=== PATIENT | male | born 1940 | race Caucasian/White ===

== ENCOUNTER 2017-01-30 09:00 | Inpatient (IN) | payer OTHER ==
[2017-01-30] MEDS ORDERED: ASPIRIN PO STA (09:32)
[2017-01-30] MEDS ORDERED: SOLU-MEDROL IV ONE (09:32)
[2017-01-30] MEDS ORDERED: DUONEB (A & A) INH ONE ×2 (09:32→11:32)
--- NOTE | 2017-01-30 09:39 | PROVIDER DOCUMENTATION ---
HPI-Respiratory General - General Chief Complaint: Shortness of Breath Stated Complaint: SHORTNESS OF BREATH Time Seen by Provider: 01/30/17 09:25 Source: patient, family Allergies/Adverse Reactions: Patient Allergies Allergy/AdvReac Type Severity Reaction Status Date / Time meperidine HCl * Allergy Severe SHORTNESS Verified 10/24/16 22:38 [From Demerol] OF BREATH midazolam HCl * [From Versed] Allergy Severe SHORTNESS Verified 10/24/16 22:38 OF BREATH Penicillins Allergy Severe ANAPHYLAXIS Verified 10/24/16 22:38 tetracycline Allergy Severe ANAPHYLAXIS Verified 10/24/16 22:38 Sulfa (Sulfonamide AdvReac Severe ANAPHYLAXIS Verified 10/24/16 22:38 Antibiotics) Home Medications: Home Medication List Medication Instructions Recorded Confirmed Last Taken Type Albuterol Sulfate 0.63 mg NEB PRN PRN 10/24/16 01/30/17 01/29/17 07:00 History 0.63 MG Albuterol Sulfate [Proair Hfa] 1 puff INH PRN PRN 10/24/16 01/30/17 01/29/17 07: 00 History 1 PUFF Amiodarone [Cordarone] 200 mg PO BID 10/24/16 01/30/17 01/29/17 19:00 History 200 MG Aspirin [Aspirin EC] 81 mg PO DAILY 10/24/16 01/30/17 01/29/17 07:00 History 81 MG Carvedilol [Coreg] 3.125 mg PO BID 10/24/16 01/30/17 01/29/17 19:00 History 3.125 MG Diltiazem [Cardizem] 60 mg PO TID 10/24/16 01/30/17 01/29/17 07:00 History 60 MG Furosemide [Lasix] 40 mg PO DAILY 10/24/16 01/30/17 01/29/17 07:00 History 40 MG Gabapentin [Neurontin] 100 mg PO TID 10/24/16 01/30/17 01/29/17 19:00 History 100 MG Glipizide [Glipizide ER] 10 mg PO DAILY 10/24/16 01/30/17 01/29/17 07:00 History 10 MG Lisinopril 10 mg PO DAILY 10/24/16 01/30/17 01/29/17 07:00 History 10 MG Metformin [Glucophage] 1,000 mg PO BID 10/24/16 01/30/17 01/29/17 19:00 History 1000 MG Nitroglycerin [Nitroglycerin 0.4 mg SL PRN PRN 10/24/16 01/30/17 01/29/17 07:00 History Lingual [place]] 0.4 MG Pantoprazole [Protonix] 40 mg PO DAILY 10/24/16 01/30/17 01/29/17 07:00 History 40 MG Pravastatin Sodium 40 mg PO DAILY 10/24/16 01/30/17 01/29/17 19:00 History 40 MG Zolpidem Tartrate 5 mg PO DAILY 10/24/16 01/30/17 01/29/17 19:00 History 5 MG Sertraline HCl [Zoloft] 100 mg PO 01/30/17 01/29/17 07:00 History 100 MG - History of Present Illness-Resp Nature of Presenting Problem: Patient is a 76 y/o M that presents to the with 5 to 6 days of shortness of breath and productive cough that has gotten worse. Patient reports having chest pain 2 days ago that nitro relieved. patient was on a 7 day course of Levaquin by in which he completed 6 days ago. He denies fever/chills, vomiting. He does report some abdominal cramping with diarrhea. on arrival to the ER, patient o2 saturation was 84% 3lpm per [place] Quality of Pain: reports: dull, tightness Severity in ED: reports: moderate Onset/Duration: reports: gradual, 5 days ago, 6 days ago Timing: reports: still present, getting worse Context: reports: multiple patients with similar complaints, recent URI Cough Quality/Degree: reports: moderate, productive cough, sputum (yellow/brown) Current Respiratory Medication Therapy: Initiated see nurses note Modifying Factors: worse with: exertion, coughing Associated Symptoms: reports: chest pain/soreness, cough, shortness of breath, short of breath. denies: facial pain, fever/chills, headache, nasal congestion , nasal drainage, wheezing Similar Symptoms Previously?: Yes Recently seen or treated by another doctor?: Yes Review of Systems - Adult - REVIEW OF SYSTEMS - ADULT Constitutional: denies: chills, fever Eyes: reports: no symptoms reported Ears, Nose, Mouth & Throat: denies: ear discharge, ear pain, sinus problem, throat pain, throat swelling Cardiovascular: reports: chest pain. denies: palpitations, syncope Respiratory: reports: chronic cough, cough, dyspnea on exertion, excessive sputum production, shortness of breath Gastrointestinal: reports: abdominal pain, diarrhea, nausea. denies: rectal bleeding, vomiting Genitourinary: reports: no symptoms reported Musculoskeletal: reports: no symptoms reported Integumentary: reports: no symptoms reported Neurological: reports: no symptoms reported Psychiatric: reports: no symptoms reported Endocrine: reports: no symptoms reported Hematologic/Lymphatic: reports: no symptoms reported Allergic/Immunologic: reports: no symptoms reported All Other Systems: Reviewed and Negative Past History - Adult - PAST MEDICAL HISTORY-ADULT Review of Records: reports: Old Records Reviewed, Nursing Assessment Review, Medications Reviewed Cardiovascular: reports: CAD, CHF, HTN, hyperlipidemia, ID Respiratory: reports: COPD Gastrointestinal: reports: GERD Neurological: reports: CVA - PRIOR SURGERIES/PROCEDURES Surgical/Procedure History: reports: appendectomy, cholecystectomy, cardiac stent, hernia repair, other (cataract) - IMMUNIZATION STATUS Childhood Immunizations: See Nurse Assessment Flu Vaccine: See Nurse Assessment - FAMILY HISTORY Family History: reviewed, not pertinent - SOCIAL HISTORY Smoking: quit greater than 1 year, cigarettes Living Situation: family Physical Exam-General - PHYSICAL EXAM-ADULT Initial Vital Signs Reviewed: Yes - CONSTITUTIONAL General Appearance: alert, mild distress - EYES Eyes: PERRL/EOMI, pink conjunctivae - HEAD, EARS, NOSE, MOUTH & THROAT HENMT: normocephalic/atraumatic, moist mucous membranes, normal ENT inspection - NECK Neck: non-tender, full range of motion, normal inspection - RESPIRATORY Respiratory: no respiratory distress, no accessory muscle use, decreased breath sounds - CARDIOVASCULAR Cardiovascular: regular rate, rhythm, no gallop, no JVD - GASTROINTESTINAL (ABDOMEN) Abdominal Exam: normal bowel sounds, non tender, soft, no organomegaly, no pulsatile mass. negative: distended, guarding, rigid, rebound - MUSCULOSKELETAL Back Exam: no CVA tenderness, no vertebral tenderness Extremity: normal range of motion, normal inspection, no pedal edema, normal capillary refill, pelvis stable - SKIN Integumentary: normal color, warm/dry - NEUROLOGIC Neurologic: grossly normal, no motor/sensory deficits - PSYCHIATRIC Psych/Mental Status: normal mood/affect, normal thought content, normal thought process, oriented x 3 Progress - PLAN OF CARE/RESULTS Progress/Plan/Lab Results: plan of care-labs, meds, breathing tx, ekg, cxr Vital Signs Temp Pulse Resp BP Pulse Ox 01/30/17 09:50 88 16 85 L 01/30/17 09:23 98.0 F 01/30/17 09:19 89 22 120/56 84 L meperidine HCl * [From Demerol] Allergy (Severe, Verified 10/24/16 22:38) SHORTNESS OF BREATH reaction with versed during a prior surgery midazolam HCl * [From Versed] Allergy (Severe, Verified 10/24/16 22:38) SHORTNESS OF BREATH reaction with demerol during a prior surgery Penicillins Allergy (Severe, Verified 10/24/16 22:38) ANAPHYLAXIS tetracycline Allergy (Severe, Verified 10/24/16 22:38) ANAPHYLAXIS Sulfa (Sulfonamide Antibiotics) Adverse Reaction (Severe, Verified 10/24/16 22: 38) ANAPHYLAXIS Albuterol Sulfate 0.63 mg NEB PRN PRN 10/24/16 Albuterol Sulfate [Proair Hfa] 1 puff INH PRN PRN 10/24/16 Amiodarone [Cordarone] 200 mg PO BID 10/24/16 Aspirin [Aspirin EC] 81 mg PO DAILY 10/24/16 Carvedilol [Coreg] 3.125 mg PO BID 10/24/16 Diltiazem [Cardizem] 60 mg PO TID 10/24/16 Furosemide [Lasix] 40 mg PO DAILY 10/24/16 Gabapentin [Neurontin] 100 mg PO TID 10/24/16 Glipizide [Glipizide ER] 10 mg PO DAILY 10/24/16 Lisinopril 10 mg PO DAILY 10/24/16 Metformin [Glucophage] 1,000 mg PO BID 10/24/16 Nitroglycerin [Nitroglycerin Lingual [place]] 0.4 mg SL PRN PRN 10/24/16 Pantoprazole [Protonix] 40 mg PO DAILY 10/24/16 Pravastatin Sodium 40 mg PO DAILY 10/24/16 Zolpidem Tartrate 5 mg PO DAILY 10/24/16 Sertraline HCl [Zoloft] 100 mg PO 01/30/17 Laboratory 01/30/17 01/30/17 01/30/17 10:06 10:06 10:06 WBC RBC Hgb Hct MCV MCH MCHC RDW Std Deviation Plt Count MPV Immature Gran % (Auto) Neut % (Auto) Lymph % (Auto) [place] % (Auto) Eos % (Auto) Baso % (Auto) Immature Gran # (Auto) Neut # (Auto) Lymph # (Auto) [place] # (Auto) Eos # (Auto) Baso # (Auto) PT 11.4 INR 1.07 PTT (Actin FS) 32.5 D-Dimer Specimen Type Sample Site pH pCO2 pO2 HCO3 Base Excess Oxyhemoglobin ABG O2 Sat (Calculated) ABG O2 Saturation ABG Carboxyhemoglobin ABG Methemoglobin Claudy Test A-a O2 Difference Total Hemoglobin Lactate Liter Flow Blood Gas Modality FiO2 % Sodium Potassium Chloride Carbon Dioxide Anion Gap BUN Creatinine Estimated GFR/1.73 m2 BUN/Creatinine Ratio Glucose Calculated Osmolality Calcium Magnesium Total Bilirubin AST ALT Alkaline Phosphatase Creatine Kinase Troponin T 0.027 Biq-T-Jtstnfforcl Pept 3715 H Total Protein Albumin Globulin Albumin/Globulin Ratio Lipase 01/30/17 01/30/17 01/30/17 10:06 10:06 10:06 WBC 9.62 RBC 3.94 L Hgb 10.0 L Hct 31.7 L MCV 80.5 L MCH 25.4 L MCHC 31.5 L RDW Std Deviation 16.9 H Plt Count 316 MPV 9.3 Immature Gran % (Auto) 0.9 H Neut % (Auto) 79.3 H Lymph % (Auto) 10.9 L [place] % (Auto) 7.7 Eos % (Auto) 1.0 Baso % (Auto) 0.2 Immature Gran # (Auto) 0.09 H Neut # (Auto) 7.62 H Lymph # (Auto) 1.05 L [place] # (Auto) 0.74 H Eos # (Auto) 0.10 Baso # (Auto) 0.02 PT INR PTT (Actin FS) D-Dimer 4.33 H Specimen Type Sample Site pH pCO2 pO2 HCO3 Base Excess Oxyhemoglobin ABG O2 Sat (Calculated) ABG O2 Saturation ABG Carboxyhemoglobin ABG Methemoglobin Claudy Test A-a O2 Difference Total Hemoglobin Lactate Liter Flow Blood Gas Modality FiO2 % Sodium 141 Potassium 3.5 Chloride 101 Carbon Dioxide 27 Anion Gap 13 BUN 14 Creatinine 1.0 Estimated GFR/1.73 m2 > 60 BUN/Creatinine Ratio 14 Glucose 170 H Calculated Osmolality 286 Calcium 8.4 L Magnesium 1.6 Total Bilirubin 0.40 AST 15 ALT 12 Alkaline Phosphatase 100 Creatine Kinase 70 Troponin T Wbu-H-Jznnoatnejj Pept Total Protein 7.1 Albumin 3.0 L Globulin 4.1 Albumin/Globulin Ratio 0.7 Lipase 15 01/30/17 09:48 WBC RBC Hgb Hct MCV MCH MCHC RDW Std Deviation Plt Count MPV Immature Gran % (Auto) Neut % (Auto) Lymph % (Auto) [place] % (Auto) Eos % (Auto) Baso % (Auto) Immature Gran # (Auto) Neut # (Auto) Lymph # (Auto) [place] # (Auto) Eos # (Auto) Baso # (Auto) PT INR PTT (Actin FS) D-Dimer Specimen Type ARTERIAL Sample Site R RADIAL pH 7.49 H pCO2 37 pO2 49 L* HCO3 28.3 H Base Excess 4.6 H Oxyhemoglobin 85.4 L* ABG O2 Sat (Calculated) 12.7 L ABG O2 Saturation 89.5 L ABG Carboxyhemoglobin 3.20 H ABG Methemoglobin 1.4 Claudy Test YES A-a O2 Difference 133.0 Total Hemoglobin 10.6 L Lactate 1.40 Liter Flow 3.0 Blood Gas Modality CANNULA FiO2 % 32.0 Sodium Potassium Chloride Carbon Dioxide Anion Gap BUN Creatinine Estimated GFR/1.73 m2 BUN/Creatinine Ratio Glucose Calculated Osmolality Calcium Magnesium Total Bilirubin AST ALT Alkaline Phosphatase Creatine Kinase Troponin T Azt-F-Gnwahdokdmb Pept Total Protein Albumin Globulin Albumin/Globulin Ratio Lipase Orders Category Date Time Status Cardiac Monitoring DIRECTED Care 01/30/17 09:32 Active Saline Loc NOW Care 01/30/17 09:32 Active CHEST-PORTABLE [RAD] Stat Exams 01/30/17 09:22 Draft ABG [RESP] Routine Lab 01/30/17 09:48 Completed BLOOD CULTURE [BLDCUL] Stat Lab 01/30/17 10:06 Results CBC WITH ELECTRONIC DIFF [HEME] Stat Lab 01/30/17 10:06 Completed CK PROFILE [SP CHEM] Stat Lab 01/30/17 10:06 Completed COMPREHENSIVE METABOLIC PANEL [CHEM] Stat Lab 01/30/17 10:06 Completed D-DIMER [CHEM] Stat Lab 01/30/17 10:06 Completed LIPASE [CHEM] Stat Lab 01/30/17 10:06 Completed MAGNESIUM [CHEM] Stat Lab 01/30/17 10:06 Completed PRO B-NATRIURETIC PEPTIDE Stat Lab 01/30/17 10:06 Completed PROTIME WITH INR [COAG] Stat Lab 01/30/17 10:06 Completed PTT [COAG] Stat Lab 01/30/17 10:06 Completed TROPONIN T Stat Lab 01/30/17 10:06 Completed UA NIMS W/REFLEX CULT [URINALYSIS] Stat Lab 01/30/17 09:32 Uncollected Albuterol 2.5MG/Ipratrop 0.5MG [Duoneb (A & A)] Med 01/30/17 09:32 Discontinued 3 ml INH NOW ONE Aspirin Med 01/30/17 09:32 Discontinued 325 mg PO STAT STA Furosemide [Lasix] Med 01/30/17 10:58 Discontinued 80 mg IV NOW ONE Methylprednisolone Sod Succ [Solu-Medrol] Med 01/30/17 09:32 Discontinued 125 mg IV NOW ONE Aerosol Treatments Routine Oth 01/30/17 09:34 Completed Aerosol Treatments Stat Oth 01/30/17 09:34 Completed EKG [EKG] Stat Ther 01/30/17 09:09 Draft 1115-hospitalist contacted foradmission - EKG 1 Time of EKG reading by physician:: 09:13 EKG Read and Signed by:: Darwin Powers EKG Interpretation (*Must complete 3 of following elements*): Abnormal Rate: 921 Rhythm: accelerated junctional rhythm QRS: other (low voltage QRS) ST Wave: non-specific ST changes - XRAY 1 XRAY Study: Chest Impression: Abnormal XRAY Interpretation: pulmonary edema vs pneumonia worse on the left than right - CONSULTS/PCP/HOSPITALIST Notification #1 *Consult/PCP/Hospitalist*: Ton Sheridan accepts patient for for hospitalist Time Discussed: 11:15 Consult Disposition: Will see in ED, Admit Departure - Departure Time of Disposition Order: 11:24 DIAGNOSIS: Shortness of breath, Hypoxia CHF (congestive heart failure) Qualifiers: Congestive heart failure type: systolic Congestive heart failure chronicity: acute on chronic Qualified Code(s): I50.23 - Acute on chronic systolic ( congestive) heart failure Disposition: ADMITTED INPATIENT 09 Certified Medical Emergency: Emergent Condition: Stable Referrals: Chacha Phipps MD [Primary Care Provider] - - Critical Care Note Total Time (mins): 35 Critical Care Statement: This patient required my direct personal management to treat or rule out processes, the absence of which, could potentiallly result in sudden, clinically significant life or limb threatening deterioration. Attestation - Scribe Verification/Attestation Scribe:: Santo Mendiola Acting as Scribe for:: Darwin Powers Scribe documention review:: This chart was documented by a scribe and accurately reflects the service the provider performed and the decisions made by the provider. Physician Attestation - Physician Attestation I, the provider, attest to the following statement:: Darwin Powers Physician documentation Attestation:: This documentation recorded by the scribe accurately reflects the service I personally performed and the decisions made by me.
[2017-01-30 10:06] LABS: ALLEN TEST YES; BE 4.6 mmoll (-3.0-3.0); BLOOD TYPE ARTERIAL; DRAW SITE R RADIAL; METHB 1.4 % (0.0-1.5); O2(CT) 12.7 mL/dL (15.0-23.0); PCO2(98.6) 37 mmHg (35-45); SAMPLE BLOOD; SAO2 89.5 % (95.0-100.0); THB 10.6 g/dL (11.5-17.4); pH(98.6) 7.49 (7.35-7.45)
[2017-01-30 10:09] LABS: MODALITY CANNULA; PO2(98.6) 49 mmHg (60-100)
[2017-01-30 10:20] LABS: MANUAL DIFF NEEDED? NO
--- NOTE | 2017-01-30 10:21 | Diag Imaging Result Document ---
PROCEDURE NAME: CHEST-PORTABLE - 01/30/2017 AP PORTABLE CHEST DATED 01/30/2017 AT 0948 HOURS: FINDINGS: There is alveolar opacity throughout much of the left lung which was not the case on 01/05/2017. There is minimal opacification of the right costophrenic sulcus region. This was also not as severe on the previous study. IMPRESSION: Pulmonary edema versus pneumonia much worse on the left than the right.
[2017-01-30 10:25] LABS: BASO% 0.2 % (0.0-0.8); HEMATOCRIT 31.7 % (42.0-52.0); IMM GRAN# 0.09 X1000 (0.0-0.04); IMM GRAN% 0.9 % (0.0-0.5); LYMPH# 1.05 X1000 (1.2-3.4); LYMPH% 10.9 % (20.5-51.1); MCH 25.4 PG (27-31); MCHC 31.5 g/dL (33-37); MCV 80.5 FL (81-99); MONO# 0.74 X1000 (0.11-0.59); MONO% 7.7 % (1.7-9.3); MPV 9.3 FL (7.4-10.4); NEUT% 79.3 % (42.2-75.2); PLT 316 X1000 (130-400); RBC 3.94 XMIL (4.7-6.1)
--- NOTE | 2017-01-30 10:35 | EKG Report ---
Test Performed on : 01/30/2017 09:13:42 AM Test Reason : sob Blood Pressure : / mmHG Vent. Rate : 091 BPM Atrial Rate : 087 BPM P-R Int : 000 ms QRS Dur : 090 ms QT Int : 416 ms P-R-T Axes : 000 069 045 degrees QTc Int : 511 ms Accelerated Junctional rhythm. Low voltage QRS Cannot rule out Anteroseptal infarct (cited on or before 04-JUL-2011) Prolonged QT Abnormal ECG When compared with ECG of 24-OCT-2016 22:05, Nonspecific T wave abnormality no longer evident in Lateral leads Unconfirmed Result
[2017-01-30 10:36] LABS: INR 1.07; PROTIME 11.4 Seconds (9.2-11.7); PTT 32.5 Seconds (22.0-36.0)
[2017-01-30] MEDS ORDERED: LASIX IV ONE (10:58)
[2017-01-30 11:07] LABS: AGAP 13; ALKALINE PHOSPHATASE 100 U/L (32-122); BUN 14 mg/dL (8-22); CALCIUM 8.4 mg/dL (8.8-10.2); CHLORIDE 101 mmol/L (98-107); CK PROFILE 70 U/L (24-204); COSMO 286; GOT 15 U/L (10-34); GPT 12 U/L (10-44); LIPASE 15 U/L (13-60); MAGNESIUM 1.6 mg/dL (1.5-2.7); POTASSIUM 3.5 mmol/L (3.5-5.1); SODIUM 141 mmol/L (136-145); TCO2 27 mmol/L (25-35); TOTAL PROTEIN 7.1 g/dL (6.3-8.3)
[2017-01-30 11:25] LABS: URINE CULTURE NEEDED? NO; URINE MICRO REVIEW NEEDED? NO; URINE SOURCE CLEAN CATCH
[2017-01-30 11:30] LABS: BILIRUBIN URINE NEGATIVE (NEGATIVE); BLOOD URINE NEGATIVE (NEGATIVE); COLOR YELLOW; GLUCOSE URINE NEGATIVE (NEGATIVE); LEUKOCYTES URINE NEGATIVE (NEGATIVE); NITRITE URINE NEGATIVE (NEGATIVE); PROTEIN URINE 30 mg/dL (NEGATIVE); SP GRAVITY URINE 1.019; TURBIDITY URINE CLEAR (CLEAR); UROBILINOGEN URINE NORMAL (NORMAL)
[2017-01-30 11:32] LABS: UR EPITHELIAL CELLS <10 /HPF (<10); URINE BACTERIA NEGATIVE /HPF; URINE RBC <10 /HPF (<10); URINE WBC <10 /HPF (<10)
[2017-01-30] MEDS ORDERED: ALBUTEROL SULFATE 0.63 MG NEB PRN (12:44)
[2017-01-30] MEDS ORDERED: ROCEPHIN 1 GM/NS 50 ML IV SCH (12:44)
[2017-01-30] MEDS ORDERED: DUONEB (A & A) INH PRN (12:44)
[2017-01-30] MEDS ORDERED: NITROGLYCERIN LINGUAL SPRAY SL PRN (12:44)
[2017-01-30] MEDS ORDERED: VENTOLIN HFA INH PRN (12:44)
--- NOTE | 2017-01-30 13:24 | Diag Imaging Result Document ---
PROCEDURE NAME: ANGIOGRAM/PULMONARY ARTERIES - 01/30/2017 CT OF THE CHEST WITH INTRAVENOUS CONTRAST: FINDINGS: There are no filling defects in the pulmonary arteries. There is extensive coronary calcification. The aorta is not distended nor is there evidence of dissection. There are multiple nodes in the precarinal and aortopulmonary window some of which are matted in the latter for an aggregate dimension of over 2.8 cm. There are also some fairly large subcarinal and left hilar nodes. There is patchy opacity throughout the left upper lobe with dense consolidation posteriorly and laterally. There is also an ill-defined opacity in the left lower lobe with some patchy opacities present in the inferior portion of the right lower lobe. There are pleural based opacities present laterally in the right lower lobe around image 169. There are also some nodular opacities present in the right middle lobe as well as more consolidated parenchyma medially in the middle lobe. There are some scattered calcified granulomata. There is emphysematous change in the upper lung zones. There is a pleural-based opacity in the right lower lobe around image 114 measuring in excess of 2.8 cm in AP dimension. There are no previous thoracic studies available for comparison; however, some of the pleural-based opacity in the right lower lobe should have been present but is not demonstrated on the previous abdominal study of 10/29/2013. The opacities in the right middle lobe and lingula and lower lobe were not present at the time of the previous study. There is in addition a left pleural effusion which was not present previously. There is a small effusion on the right also not present on the previous study. There is a 2.3 cm node posterior and to the right of the trachea on image 37. There is an abrupt occlusion of the apical posterior segmental bronchus on the left. IMPRESSION: 1. The possibility of an endobronchial lesion in the left upper lobe with postobstructive pneumonitis and metastatic disease is suggested. 2. Bilateral pleural effusions worse on the left than the right possibly malignant. 3. Mediastinal and left hilar adenopathy. 4. No evidence of pulmonary embolus.
[2017-01-30] MEDS: CARDIZEM PO SCH ×2 (13:46→17:12)
[2017-01-30] MEDS: NEURONTIN PO SCH ×2 (13:46→17:12)
--- NOTE | 2017-01-30 14:19 | HISTORY AND PHYSICAL ---
ADDENUM: SOCIAL HISTORY: He was a smoker. He smoked for 40 years. No alcohol. 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 PAST SURGICAL HISTORY: He had his appendix taken out. His gallbladder taken out. Left carpal tunnel surgery. He has had 2 inguinal hernia surgery repairs and also an umbilical hernia repair. I think those were done by Dr. Laci Rice.
[2017-01-30] MEDS: DUONEB (A & A) INH SCH ×3 (15:02→22:48)
--- NOTE | 2017-01-30 15:12 | CONSULTATION ---
DATE OF CONSULTATION: 01/30/2017 REASON FOR CONSULTATION: Cardiology was consulted for congestive heart failure, paroxysmal atrial fibrillation. HISTORY OF PRESENT ILLNESS: Mr. Ernesto Iqbal is a 76-year-old gentleman with known history of coronary artery disease, paroxysmal atrial fibrillation, stent placement in the past, and congestive heart failure. He was admitted in September with heart failure. 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 From a cardiac standpoint, the patient was stable. He for the last week to 10 days has been experiencing increasing shortness of breath associated with cough with mucoid to mucopurulent expectoration. There is no hemoptysis. There is no history of fevers or chills. Patient came to the emergency room and was admitted. Underwent a chest x-ray and D-dimers were elevated. Underwent a pulmonary arteriogram as well which revealed the possibility of endobronchial lesion with upper lobe postobstructive pneumonitis and lymph nodes were noted bi-hilar with no evidence of pulmonary embolism. REVIEW OF SYSTEMS: A 14 point review of systems was done.GI system: There is no history of nausea, vomiting, diarrhea. There is no history of hematemesis or melena. Central nervous system: No focal weakness to suggest a CVA or TIA. Genitourinary system: There is no dysuria or hematuria. Endocrine system: Stable. PAST MEDICAL HISTORY: 1. Congestive heart failure. Last ejection fraction 25%. 2. CAD with stenting to RCA in 1999. 3. Anterior myocardial infarction with subsequent stenting in 2004 to the left anterior descending artery. 4. In 2010 had a bare metal stent to the circumflex artery. 5. Congestive heart failure. 6. Hyperlipidemia. 7. CVA. 8. Diabetes mellitus. 9. COPD. 10. Patient is on oxygen as far as medications are concerned, HOME MEDICATIONS: Include Cardizem 60 mg p.o. q.8, Lasix of 40 which has been changed to Lasix IV 40 mg b.i.d., Coreg 3.125 mg a day, glipizide 10, lisinopril 20, metformin 1000 b.i.d., amiodarone 200 mg p.o. b.i.d., aspirin 81 mg a day, pravastatin 40, Zolpidem 5, gabapentin, Protonix, and Zoloft 100 mg p.o. at bedtime. ALLERGIES: He is allergic to , penicillin, tetracyclines. SOCIAL HISTORY: He quit smoking more than 10 years ago. There is no history of alcohol abuse. PHYSICAL EXAMINATION: Vital Signs: Blood pressure was 140/67. Cardiovascular System: Jugular venous pressure was normal. First and second heart sounds were heard. There is no S3 gallop. Respiratory system: Bibasilar expiratory wheeze and scattered crepitations. Abdomen: Soft, nontender. There was no guarding or rigidity. Bowel sounds were heard. Central nervous system: Alert, oriented. Was moving all 4 extremities. Extremities: Examination of extremities reveals no pedal edema. HEENT: Atraumatic, normocephalic. Pupils were reacting to light. LABORATORY EXAMINATION: Sodium 141, potassium 3.5, BUN 14, creatinine 1.0. Troponin negative. ProBNP 3,715. Hematology: Hemoglobin 10, hematocrit 31, platelet count of 316,000. ASSESSMENT AND PLAN: 1. Mr. Ernesto Iqbal is a 76-year-old gentleman with known history of heart failure, coronary artery disease, stent placement in the past, paroxysmal atrial fibrillation, cerebrovascular accident, and diabetes, is admitted with increasing shortness of breath, cough with mucoid to mucopurulent expectoration. From a cardiac standpoint, he has been started on IV Lasix. Would recommend continue Lasix. 2. We will decrease his amiodarone to 200 mg daily. 3. He is in atrial fibrillation. Rate is under control. We will continue with Cardizem and beta- blockers as planned. 4. His D-dimers were elevated. He had a CT angiogram which is very suspicious for tumor. Given this will consult Dr. Nichole. Thanks for the consult. We will follow hospital course.
--- NOTE | 2017-01-30 16:29 | HISTORY AND PHYSICAL ---
HISTORY OF PRESENT ILLNESS: He presented with increasing shortness of breath for really the last week. It has just progressively gotten worse. He denies any chest pain or fever, but he has been coughing and thick productive mucus by his report. The abdomen is hurting; he thinks it is a little bit sore from coughing. He describes increased orthopnea. He did describe some paroxysmal nocturnal dyspnea. He feels some subjective swelling in his ankles. PAST MEDICAL HISTORY: Apparently, he has had 4 MIs, a massive one in 2004. He has 4 stents that have been placed in his heart by his 's report. He has a history of atrial fibrillation. It looks like it is chronic or persistent atrial fibrillation. He is in atrial fibrillation now. History of hypertension, history of hypercholesterolemia. He is followed by Cardiology in [place], and his primary care is Dr. Phipps in [place] I believe. Recently, he had been taken off blood pressure medicine because his blood pressure was getting a low he. FAMILY HISTORY: Noncontributory. SOCIAL HISTORY: Denies alcohol or tobacco. REVIEW OF SYSTEMS: Constitutional: He does not report any weight fluctuation. Denies fever. Respiratory: Increased cough. Increased dyspnea on exertion. Increased orthopnea, paroxysmal nocturnal dyspnea, and pedal edema. Cardiovascular: No chest pain or palpitations. No pressure sensation. Gastrointestinal/Genitourinary: No complaints. He had some loose stool, but they thought he had a little virus. Apparently, they have been treating him for a respiratory tract. He took Levaquin 1 week ago, a 1-week course of Levaquin. Musculoskeletal/Neurologic: No new focal complaints. Endocrinologic/Hematologic: No history. MEDICATIONS: Looking at his medication list, he is on albuterol, ProAir. He is on amiodarone 200 mg b.i.d., aspirin 81 mg a day, Coreg 3.125 mg b.i.d., Cardizem 60 mg p.o. t.i.d., Lasix 40 mg a day, Neurontin 100 mg t.i.d., glipizide 10 mg every day, lisinopril 10 mg a day, Glucophage 1000 mg b.i.d., Protonix 40 mg a day, pravastatin 40 mg a day, Zoloft 100 mg daily, and zolpidem 5 mg a day. PHYSICAL EXAMINATION: GENERAL: Today in the emergency room, awake and alert. Sitting up. He does not appear to be labored breathing at rest. VITAL SIGNS: Temperature 98, pulse 89, respirations 16, blood pressure 122/68. HEENT AND NECK: Pupils are equal and round. CVP appears to be about 8 or 9 cm from angle of [place] water pressure. He is on 3 liters of O2 at the present time nasal cannula. Oropharynx clear. No cervical adenopathy is appreciated. VASCULAR: Carotid, radial, and popliteal pulses 2+ and symmetrical. Normal upstroke for carotid. CARDIOVASCULAR: Irregular rhythm, irregular rate. Monitor shows atrial fibrillation. PMI diffuse. I do not appreciate an S3. LUNGS: Clear with decreased breath sounds at the bases. No wheezing at this time. I do not appreciate any rhonchi. ABDOMEN: Soft, nontender. Positive bowel sounds. SKIN: Warm and dry. EXTREMITIES: At most trace edema at the ankle, really not much swelling there. No clubbing appreciated on his exam. DIAGNOSTIC DATA: White count 9620, hematocrit 31, platelet count 316,000. Sodium 141, potassium 3.5, chloride 101, bicarbonate 27, BUN 14, creatinine 1. Calcium is 8.4, magnesium 1.6. His proBNP is 3715. Albumin was 3. Lipase is 15. Prothrombin time 11.4, PTT 32. Urinalysis unremarkable. ABGs showed pH was 7.49, pCO2 of 37, PO2 was 49, and his saturations were 32% and that is on FiO2 of 32%. A chest x-ray, pulmonary edema versus pneumonia, much worse on the left than on the right. ASSESSMENT AND PLAN: 1. Exacerbation of chronic obstructive pulmonary disease. We need to treat this like it is pneumonia, but I think he also has some pulmonary venous hypertension. We are going to put him on Rocephin 1 gram every 24 hours. This is community-acquired. We will give him bronchodilators. We will put him on some steroid inhaler using Advair or something comparable. 2. Pulmonary venous hypertension. We will diurese a little bit, watch his afterload carefully, watch his blood pressure, and watch his electrolytes and renal function with that, but I think we will give him Lasix 40 mg IV every 12 hours, and we will go ahead and supplement a little bit of potassium with that. We will give him 40 mEq of potassium chloride daily, otherwise getting the potassium. Tomorrow we will check his magnesium and potassium and sodium and follow his electrolytes. 3. He has a pretty impressive A-a gradient that I guess can be explained with pulmonary venous hypertension and the pneumonia. I think we have to probably consider looking for a pulmonary thromboemboli. At this point, we are going to see how he responds clinically. It may be prudent to get a pulmonary arteriogram on him and just make sure he does not have a pulmonary thromboemboli. 4. Atrial fibrillation. Rate appears being controlled. He is on amiodarone loading dose 200 mg twice a day. We will ask Cardiology to assist, and make sure we are addressing his atrial fibrillation, make sure we do not need to pursue any cardioversion. He has had tests done I am sure at [place], including echocardiogram, so I will not duplicate those right now. He did have some pulmonary function tests I see June that showed severe obstruction without improvement following bronchodilator, moderate air trapping, identified lung volumes, and severe reduction in diffusing capacity, so he has I think pretty advanced chronic obstructive pulmonary disease. I need to question him about his smoking. I do not remember if he commented on smoking. I also need to question him about his past surgical history, so we will complete that. 5. The plan is to admit him and pursue treatment.
[2017-01-30] MEDS: HUMALOG SUBQ SCH ×3 (17:11→23:05)
[2017-01-30] MEDS: LEVAQUIN 750 MG/D5W 150 ML IV SCH (17:12)
[2017-01-30] MEDS: ADVAIR 250/50 DISKUS INH SCH (19:18)
[2017-01-30] MEDS ORDERED: VANCOMYCIN IV PER PHARMACY MISC SCH (20:45)
[2017-01-30] MEDS: COREG PO SCH (20:49)
[2017-01-30] MEDS: AMBIEN PO SCH (20:49)
[2017-01-30] MEDS: CORDARONE PO SCH (20:49)
[2017-01-30] MEDS: AZACTAM 2 GM in NS 100 ML IV SCH (21:39)
[2017-01-30] MEDS: VANCOMYCIN 2,000 MG in NS 500 ML IV SCH (23:09)
[2017-01-31] MEDS: DUONEB (A & A) INH SCH ×6 (02:57→23:43)
[2017-01-31] MEDS: AZACTAM 2 GM in NS 100 ML IV SCH ×3 (04:16→20:04)
--- NOTE | 2017-01-31 04:47 | CONSULTATION ---
DATE OF CONSULTATION: 01/30/2017 REQUESTING PHYSICIAN: Claudy Turner MD REASON FOR CONSULTATION: Pneumonia. HISTORY OF PRESENT ILLNESS: Mr. Iqbal is a 76-year-old white male with severe combined heart and lung disease who is followed in my clinic. His chest x-ray on 01/05/2017 revealed mild fibrosis in the apices. Approximately 10 days ago, patient developed increased cough and increased yellow sputum production. The patient is allergic to multiple medications including penicillins, sulfa and tetracycline. The patient received a prescription of Levaquin. The patient reports he initially felt he was getting better on the course of Levaquin but subsequently became worse. The patient presented to the emergency room today and a chest x-ray reveals a diffuse pneumonia throughout the left lung along with a new opacification at the right base. Arterial blood gas revealed evidence of [id number] hypoxemia. He underwent CT scan of the thorax which revealed nonspecific adenopathy, patchy bilateral infiltrates, possible segmental bronchus obstruction in the left upper lobe. PAST MEDICAL HISTORY: 1. Severe COPD and chronic hypoxemic respiratory failure. 2. Anterior myocardial infarction. 3. Status post stenting of the RCA in 1999, LAD in 2004, and a circumflex artery in 2010. 4. Ischemic cardiomyopathy with an ejection fraction of 25%. 5. Dyslipidemia. 6. History of CVA. 7. Diabetes mellitus. SOCIAL HISTORY: No alcohol use. Extensive tobacco use, but none recently. FAMILY HISTORY: Noncontributory to current presentation. REVIEW OF SYSTEMS: Notable for lethargy, increased shortness of breath, purulent sputum production. He denies fevers, chills, or sweats. PHYSICAL EXAMINATION: General: Reveals a chronically ill-appearing, white male in no distress. Temperature 97.7 degrees, heart rate 84, respiratory rate 16, blood pressure 140/67, oxygen saturation 94% on 3 L per nasal cannula. HEENT: Pupils are equal and reactive. Oropharynx is clear. Neck: Supple. Chest: Reveals crackles throughout the left lung. No definite E to A changes. Cardiac: Regular rate. Normal S1, normal S2. Abdomen: Soft without hepatosplenomegaly. Extremities: Reveal trace edema. LABORATORIES: White blood count 9.62, hemoglobin 10.0, platelet count 316,000. Chemistries: Sodium 141, potassium 3.5, chloride 101, bicarbonate 27, BUN 14, creatinine 1.0. ProBNP 3715. IMPRESSION: A 76-year-old with severe combined heart and lung disease, who presents with a diffuse pneumonia throughout the left lung with smaller infiltrates in the right lung. The radiologist raises the possibility that this represents metastatic disease but with his grossly purulent sputum production and marked change in his chest x-ray in less than 1 month, this most likely represents a pneumonia. The patient is allergic to multiple medications and therefore frequently receives a quinolone. It is quite probable that he has a quinolone-resistant bacteria. Unfortunately, he has anaphylaxis with penicillins, sulfa drugs, and tetracycline and therefore, I am concerned about using a 3rd generation cephalosporin but it may be required. RECOMMENDATIONS: 1. Continue Levaquin, although he may have developed a drug resistance as outlined above. 2. Initiate vancomycin for gram-positive coverage. 3. Initiate aztreonam until sputum cultures return. 4. Oxygen as needed for acute hypoxemic respiratory failure. 5. Additional recommendations pending hospital course. 6. His prognosis is guarded to poor.
[2017-01-31 05:12] LABS: HEMATOCRIT 30.3 % (42.0-52.0); HEMOGLOBIN 9.5 g/dL (14.0-18.0); MCH 25.5 PG (27-31); MCHC 31.4 g/dL (33-37); MCV 81.2 FL (81-99); MPV 9.3 FL (7.4-10.4); RBC 3.73 XMIL (4.7-6.1)
[2017-01-31 05:38] LABS: AGAP 15; BUN 20 mg/dL (8-22); CALCIUM 8.1 mg/dL (8.8-10.2); CHLORIDE 101 mmol/L (98-107); COSMO 290; POTASSIUM 3.6 mmol/L (3.5-5.1); SODIUM 142 mmol/L (136-145); TCO2 26 mmol/L (25-35)
[2017-01-31] MEDS: HUMALOG SUBQ SCH ×4 (06:18→20:08)
[2017-01-31] MEDS: ADVAIR 250/50 DISKUS INH SCH ×2 (07:33→19:50)
[2017-01-31] MEDS ORDERED: LASIX IV SCH (08:00)
[2017-01-31] MEDS: CORDARONE PO SCH ×2 (08:40→20:04)
[2017-01-31] MEDS: PROTONIX PO SCH (08:40)
[2017-01-31] MEDS: COREG PO SCH ×2 (08:40→20:04)
[2017-01-31] MEDS: NEURONTIN PO SCH ×3 (08:40→17:03)
[2017-01-31] MEDS: KLOR-CON PO SCH (08:40)
[2017-01-31] MEDS: PRAVACHOL PO SCH (08:40)
[2017-01-31] MEDS: ASPIRIN EC PO SCH (08:40)
[2017-01-31] MEDS: PRINIVIL PO SCH (08:41)
[2017-01-31] MEDS: CARDIZEM PO SCH ×3 (08:41→17:03)
[2017-01-31] MEDS ORDERED: LOVENOX SUBQ SCH (09:00)
[2017-01-31] MEDS: LEVAQUIN 750 MG/D5W 150 ML IV SCH (12:05)
--- NOTE | 2017-01-31 16:09 | PROGRESS NOTE ---
DATE: 01/31/2017 SUBJECTIVE: Today Mr. Iqbal refers to be doing okay. He said he has coughed a lot of Jell-O 'breanna mucus out, and his chest feels a whole lot better. OBJECTIVE: Vital signs: Blood pressure is 108/61, pulse of 80, respirations 18, temperature 98.7 degrees. General exam: Mr. Iqbal is a 76-year-old male. He is in bed, not seemingly distressed. HEENT: Mucosa is pink and moist. Anicteric. Acyanotic. Neck: Supple. Chest: Air entry is bilaterally reduced. There is diffuse bilateral posterior crepitations in both lung mccarthy. Cardiovascular: Regular rate and rhythm. Abdomen: Distended, but nontender. Bowel sounds are present. Extremities: No pedal edema. LABORATORY DATA: WBC is 8.41, hemoglobin is 9.5, platelet count of 278. Chemistry is reviewed and is completely unremarkable. Glucose is 213. X-RAYS: A CTA of the lungs which was done on admission yesterday shows possibility of endobronchial lesion, bilateral pleural effusion worse on the left, left lobe with postobstructive pneumonitis and metastatic disease is suggested. ASSESSMENT: 1. Acute hypoxemic respiratory failure. 2. Multifocal pneumonia most predominantly on the left side. 3. Bilateral pleural effusions. 4. Severe chronic obstructive pulmonary disease with chronic hypoxemic respiratory failure. 5. History of ischemic cardiomyopathy with ejection fraction of 25%. 6. Patient's current medications have been reviewed. Blood culture has shown 1/2 positive for gram-positive cocci. I think this is probably contamination; we will, however, wait for the final report. GENERAL PLAN: We are going to continue with the current antibiotics. Continue with the home medications for his heart conditions. I did explain to the patient that we might probably have to repeat his CT scan of the chest maybe a month or two after the lung infection has completely cleared because of the concern in the report of the CTA from the radiologist, which suggested that there could be a metastatic disease or an endobronchial lesion.
[2017-01-31] MEDS: XARELTO PO SCH (17:03)
[2017-01-31] MEDS: MIRALAX PO SCH (17:27)
[2017-01-31] MEDS: MUCINEX PO SCH (20:04)
[2017-01-31] MEDS: AMBIEN PO SCH (20:04)
[2017-01-31] MEDS: VANCOMYCIN 2,000 MG in NS 500 ML IV SCH (23:06)
[2017-02-01] MEDS: DUONEB (A & A) INH SCH ×6 (02:51→23:10)
[2017-02-01] MEDS ORDERED: LASIX IV ONE (03:27)
[2017-02-01] MEDS: HUMALOG SUBQ SCH ×4 (06:24→20:52)
[2017-02-01] MEDS: AZACTAM 2 GM in NS 100 ML IV SCH ×3 (06:24→20:51)
[2017-02-01 06:27] LABS: CALCIUM 8.2 mg/dL (8.8-10.2); POTASSIUM 3.6 mmol/L (3.5-5.1)
[2017-02-01 06:47] LABS: HEMATOCRIT 33.6 % (42.0-52.0); HEMOGLOBIN 10.6 g/dL (14.0-18.0); MCH 25.7 PG (27-31); MCHC 31.5 g/dL (33-37); MCV 81.6 FL (81-99); MPV 9.3 FL (7.4-10.4); RBC 4.12 XMIL (4.7-6.1)
[2017-02-01] MEDS: ADVAIR 250/50 DISKUS INH SCH ×2 (08:06→19:14)
[2017-02-01] MEDS: MIRALAX PO SCH (08:40)
[2017-02-01] MEDS: MUCINEX PO SCH ×2 (08:40→20:50)
[2017-02-01] MEDS: KLOR-CON PO SCH (08:40)
[2017-02-01] MEDS: CORDARONE PO SCH ×2 (08:40→20:50)
[2017-02-01] MEDS: PRINIVIL PO SCH (08:40)
[2017-02-01] MEDS: PROTONIX PO SCH (08:41)
[2017-02-01] MEDS: PRAVACHOL PO SCH (08:41)
[2017-02-01] MEDS: ASPIRIN EC PO SCH (08:41)
[2017-02-01] MEDS: CARDIZEM PO SCH ×3 (08:41→20:50)
[2017-02-01] MEDS: NEURONTIN PO SCH ×3 (08:41→20:50)
[2017-02-01] MEDS: COREG PO SCH ×2 (08:41→20:50)
[2017-02-01] MEDS ORDERED: LASIX PO SCH ×2 (09:00→21:00)
--- NOTE | 2017-02-01 13:08 | Diag Imaging Result Document ---
PROCEDURE NAME: CHEST-PORTABLE - 02/01/2017 PORTABLE CHEST X-RAY: COMPARISON: 01/30/2017. FINDINGS: Grossly stable extensive infiltrate throughout the left lung. There is some infiltrate throughout the right lung base but this has improved from prior. Heart size remains normal. Lungs are hyperexpanded compatible with COPD. IMPRESSION: Improvement from prior. Persistent multilobar bilateral pneumonia.
--- NOTE | 2017-02-01 13:10 | Diag Imaging Result Document ---
PROCEDURE NAME: KUB ABDOMEN - 02/01/2017 ABDOMEN: COMPARISON: CT abdomen and pelvis 10/29/2013. FINDINGS: There are cholecystectomy clips. No bowel obstruction or free air. IMPRESSION: No acute disease.
[2017-02-01] MEDS: LEVAQUIN 750 MG/D5W 150 ML IV SCH (15:05)
--- NOTE | 2017-02-01 15:49 | PROGRESS NOTE ---
DATE: 02/01/2017 SUBJECTIVE: Today Mr. Iqbal referred to be doing okay. According to him, he had an episode of some shortness of breath with chest tightness and getting flushed, hot during the infusion of vancomycin last night. OBJECTIVE: Vital signs: Blood pressure is 113/59, pulse of 87, respirations 18 , temperature 98 degrees. General Examination: Mr. Iqbal is 76-year-old male. He is in bed. He does not seem to be in any distress. HEENT: Mucosa is pink and moist. Anicteric. Acyanotic. Neck: Supple. Chest: Air entry is bilaterally reduced. There is diffuse posterior crepitations. Cardiovascular: Regular rate and rhythm. Abdomen: Distended, but nontender. 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 Extremities: No pedal edema. LABORATORY DATA: WBC is 11.18, hemoglobin 10.6, platelet count of 364,000. Chemistry was reviewed, completely unremarkable. A chest x-ray done this morning shows improvement from previous tests. ASSESSMENT: 1. Acute hypoxemic respiratory failure. 2. Multifocal pneumonia, most predominantly on the left. 3. Bilateral pleural effusions. 4. Severe chronic obstructive pulmonary disease with chronic hypoxemic failure. 5. Ischemic cardiomyopathy with ejection fraction of 25%. 6. Strep aureus blood culture positive 1/2, likely from contamination. An episode of hotness and shortness of breath during the infusion of vancomycin. Not quite sure if this was an initial reaction to vancomycin (red man's syndrome), or it was due to fluid overload during the infusion. I have spoken with the nurse and we are going to be on a very critical lookup on the next dose of vancomycin. If patient gets a similar reaction with red flush, consistent with red man's syndrome, we will discontinue this and use linezolid. The patient does have allergy reactions to multiple medications. [facility]
[2017-02-01] MEDS: XARELTO PO SCH (18:10)
[2017-02-01] MEDS: LASIX PO SCH (18:10)
[2017-02-01] MEDS: AMBIEN PO SCH (20:50)
[2017-02-01] MEDS: VANCOMYCIN 2,000 MG in NS 500 ML IV SCH (23:28)
[2017-02-02] MEDS: DUONEB (A & A) INH SCH ×6 (03:16→23:16)
[2017-02-02 05:29] LABS: HEMATOCRIT 30.8 % (42.0-52.0); HEMOGLOBIN 9.6 g/dL (14.0-18.0); MCH 25.6 PG (27-31); MCHC 31.2 g/dL (33-37); MCV 82.1 FL (81-99); MPV 9.4 FL (7.4-10.4); RBC 3.75 XMIL (4.7-6.1)
[2017-02-02 05:43] LABS: AGAP 11; BUN 23 mg/dL (8-22); CHLORIDE 103 mmol/L (98-107); COSMO 287; POTASSIUM 3.9 mmol/L (3.5-5.1); SODIUM 141 mmol/L (136-145); TCO2 27 mmol/L (25-35)
[2017-02-02] MEDS: LASIX PO SCH ×2 (06:12→17:28)
[2017-02-02] MEDS: AZACTAM 2 GM in NS 100 ML IV SCH ×3 (06:12→22:38)
[2017-02-02] MEDS: HUMALOG SUBQ SCH ×4 (06:40→20:36)
[2017-02-02] MEDS: ADVAIR 250/50 DISKUS INH SCH ×2 (07:53→20:03)
[2017-02-02] MEDS: KLOR-CON PO SCH (08:40)
[2017-02-02] MEDS: ASPIRIN EC PO SCH (08:40)
[2017-02-02] MEDS: PROTONIX PO SCH (08:41)
[2017-02-02] MEDS: MUCINEX PO SCH ×2 (08:41→20:37)
[2017-02-02] MEDS: PRINIVIL PO SCH (08:41)
[2017-02-02] MEDS: NEURONTIN PO SCH ×3 (08:41→20:37)
[2017-02-02] MEDS: CORDARONE PO SCH ×2 (08:41→20:36)
[2017-02-02] MEDS: MIRALAX PO SCH (08:41)
[2017-02-02] MEDS: PRAVACHOL PO SCH (08:41)
[2017-02-02] MEDS: COREG PO SCH ×2 (08:41→20:36)
[2017-02-02] MEDS: CARDIZEM PO SCH ×3 (08:41→20:36)
[2017-02-02] MEDS ORDERED: DULCOLAX PR ONE (14:36)
[2017-02-02 14:39] LABS: URINE MICRO REVIEW NEEDED? NO; URINE SOURCE CLEAN CATCH
[2017-02-02 14:45] LABS: BILIRUBIN URINE NEGATIVE (NEGATIVE); BLOOD URINE NEGATIVE (NEGATIVE); COLOR YELLOW; GLUCOSE URINE 100 mg/dL (NEGATIVE); LEUKOCYTES URINE NEGATIVE (NEGATIVE); NITRITE URINE NEGATIVE (NEGATIVE); PROTEIN URINE NEGATIVE (NEGATIVE); SP GRAVITY URINE 1.012; TURBIDITY URINE CLEAR (CLEAR); UROBILINOGEN URINE NORMAL (NORMAL)
[2017-02-02 14:46] LABS: UR EPITHELIAL CELLS <10 /HPF (<10); URINE BACTERIA NEGATIVE /HPF; URINE RBC <10 /HPF (<10); URINE WBC <10 /HPF (<10)
--- NOTE | 2017-02-02 15:56 | PROGRESS NOTE ---
DATE: 02/02/2017 Today Mr. Iqbal referred to be doing fine. He was actually sitting up in the recliner when I saw him and did not have any major complaints. OBJECTIVE: Vital signs: Blood pressure 116/57, pulse of 78, respirations 21, temperature is 98.9 degrees. General: Mr. Iqbal is a 76-year-old male. He is sitting up in the chair in no distress. HEENT: Mucosa is pink and moist. Anicteric. Acyanotic. Neck: Supple. Chest: Good air entry bilateral. There is some bilateral posterior lung field crepitations. Cardiovascular: Regular rate and rhythm. Abdomen: Soft, distended, but nontender. Extremities: No pedal edema. 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 LABORATORY DATA: WBC is 7.76, hemoglobin is 9.6, platelet count of 285,000. Chemistry has been reviewed, unremarkable. Glucose is 174. CURRENT MEDICATIONS INCLUDE: 1. Albuterol nebs. 2. Amiodarone 200 b.i.d. 3. Aztreonam 2 g q.8. 4. Carvedilol 3.125 b.i.d. 5. Diltiazem 60 mg 3 times per day. 6. Lasix 40 mg p.o. b.i.d. 7. Lisinopril 10 mg daily. 8. Vancomycin. 9. Pantoprazole. 10. Pravastatin. 11. Xarelto 20 mg p.o. daily. ASSESSMENT: 1. Acute hypoxemic respiratory failure. This is improved. 2. Multifocal pneumonia most predominantly on the left. 3. Bilateral pleural effusions. 4. History of severe COPD with chronic hypoxemia. 5. Ischemic cardiomyopathy with ejection fraction of 25%. 6. Blood culture positive for strep oralis, it is 1 out of 2. I think it is contamination. GENERAL PLAN: Patient seems to be doing relatively fine. We are going to continue with the current antibiotics and the nebulizations and the heart medications. We will get PT to work with him. I think another 24 hours of IV antibiotics should be okay and we should be able to discharge the patient home tomorrow. Of note, the patient's saturations were in the low 80s this morning. We had to go up on his oxygen. Will keep a very close eye on that for today.
[2017-02-02] MEDS: XARELTO PO SCH (17:29)
[2017-02-02] MEDS: AMBIEN PO SCH (20:35)
[2017-02-02] MEDS ORDERED: LASIX IV ONE (23:13)
[2017-02-03] MEDS ORDERED: VANCOMYCIN IV SCH (01:00)
[2017-02-03] MEDS ORDERED: NS IV SCH (01:00)
[2017-02-03] MEDS: DUONEB (A & A) INH SCH ×6 (03:40→22:38)
[2017-02-03 05:32] LABS: MANUAL DIFF NEEDED? NO
[2017-02-03 05:35] LABS: BASO% 0.3 % (0.0-0.8); EOS# 0.16 X1000 (0.0-0.7); HEMATOCRIT 31.6 % (42.0-52.0); HEMOGLOBIN 9.9 g/dL (14.0-18.0); IMM GRAN# 0.07 X1000 (0.0-0.04); IMM GRAN% 0.9 % (0.0-0.5); LYMPH# 1.26 X1000 (1.2-3.4); LYMPH% 15.8 % (20.5-51.1); MCH 25.4 PG (27-31); MCHC 31.3 g/dL (33-37); MONO# 0.65 X1000 (0.11-0.59); MONO% 8.1 % (1.7-9.3); MPV 9.2 FL (7.4-10.4); NEUT% 72.9 % (42.2-75.2); PLT 315 X1000 (130-400)
[2017-02-03 05:54] LABS: AGAP 12; BUN 18 mg/dL (8-22); CALCIUM 7.5 mg/dL (8.8-10.2); CHLORIDE 102 mmol/L (98-107); COSMO 286; POTASSIUM 3.5 mmol/L (3.5-5.1); SODIUM 141 mmol/L (136-145); TCO2 27 mmol/L (25-35)
[2017-02-03] MEDS: LASIX PO SCH ×2 (06:10→16:23)
[2017-02-03] MEDS: HUMALOG SUBQ SCH ×4 (06:14→21:14)
[2017-02-03] MEDS: AZACTAM 2 GM in NS 100 ML IV SCH ×2 (07:00→14:14)
--- NOTE | 2017-02-03 07:58 | Diag Imaging Result Document ---
PROCEDURE NAME: CHEST-PORTABLE - 02/03/2017 SINGLE FRONTAL RADIOGRAPH OF THE CHEST: COMPARISON: 02/01/2017. FINDINGS: Dense consolidations throughout the left lung appear to have worsened somewhat during the interval. Much milder infiltrate at the right lung base is unchanged. No new consolidations identified, otherwise. Cardiac silhouette is stable. IMPRESSION: Apparent modest worsening of consolidation throughout the left lung, especially at the left upper lung zone.
[2017-02-03] MEDS: ADVAIR 250/50 DISKUS INH SCH ×2 (08:17→19:25)
[2017-02-03] MEDS: ASPIRIN EC PO SCH (08:51)
[2017-02-03] MEDS: CORDARONE PO SCH ×2 (08:52→21:15)
[2017-02-03] MEDS: COREG PO SCH ×2 (08:52→21:15)
[2017-02-03] MEDS: CARDIZEM PO SCH ×3 (08:52→21:15)
[2017-02-03] MEDS: KLOR-CON PO SCH (08:53)
[2017-02-03] MEDS: MIRALAX PO SCH (08:53)
[2017-02-03] MEDS: MUCINEX PO SCH ×2 (08:54→21:14)
[2017-02-03] MEDS: PRAVACHOL PO SCH (08:54)
[2017-02-03] MEDS: NEURONTIN PO SCH ×3 (08:54→21:15)
[2017-02-03] MEDS: PRINIVIL PO SCH (08:55)
[2017-02-03] MEDS: PROTONIX PO SCH (08:55)
[2017-02-03] MEDS ORDERED: LASIX IV SCH (09:00)
[2017-02-03] MEDS: SOLU-MEDROL IV SCH ×2 (14:14→21:14)
--- NOTE | 2017-02-03 15:46 | PROGRESS NOTE ---
DATE: 02/03/2017 Today Mr. Iqbal referred to be doing relatively fine. Still continued to have some residual shortness of breath. Coughing is improving. OBJECTIVELY: Vitals: Stable. Blood pressure is 114/61, pulse of 72, respirations 18, temperature is 97.5 degrees. General: Mr. Iqbal is a 76-year-old male. He was in bed. Not seemingly distressed. HEENT: Mucosa is pink and moist. Anicteric. Acyanotic. Neck: Supple. Chest: Air entry is bilaterally reduced. There are some posterior bibasilar crepitations. Cardiovascular: Regular rate and rhythm. Abdomen: Soft, distended. Extremities: No pedal edema. 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 There is no focal neurological deficit. LABORATORY DATA: WBC is 7.99, hemoglobin is 9.9, platelet count of 315,000. Chemistry is reviewed. Completely normal. Pro B is down, is in downward trend. It is now 2485. A chest x-ray which was repeated this morning shows apparent worsening of consolidation throughout the left lung especially at the left upper lobe. ASSESSMENT: 1. Acute hypoxemic respiratory failure on presentation. 2. Multifocal pneumonia most predominantly on the left upper lobe. Recent chest x-rays actually showing worse. 3. Bilateral pleural effusions likely due to underlying CHF. 4. History of end-stage COPD with chronic hypoxemia. 5. Ischemic cardiomyopathy with ejection fraction of 25%. Upon review of the urine cultures, it is negative. Patient was on aztreonam and vancomycin. However the chest x-ray is actually looking a whole lot worse than before so I will go ahead and consult ID to also evaluate the patient. I will order a urine strep antigen and Legionella.
--- NOTE | 2017-02-03 15:46 | CONSULTATION ---
DATE OF CONSULTATION: 02/03/2017 CONCLUSION: This elderly gentleman is admitted to the hospital with a pneumonia. Appears to be getting worse despite antimicrobial therapy. One of the patient's 2 blood cultures is growing strep. This could be a contaminant or could represent a streptococcal bacteremia. RECOMMENDATIONS: I have changed the patient to a combination of vancomycin, Levaquin and cefepime. I have ordered that the nurse observe the patient during the first dose of cefepime. DISCUSSION: This gentleman complains of being dyspneic for about 2 weeks. He had a cough which produced some yellow sputum. Has not had fever or chills. His chest x-ray shows worsening of the left lung consolidation. The patient's lab work shows a CBC with a white count of 7990, hemoglobin 9.9 and platelet count 315,000. Creatinine is 1.0. One of 2 blood cultures grew Streptococcus. Sputum is growing a normal ronit. Urine culture is negative. PAST MEDICAL HISTORY/REVIEW OF SYSTEMS: Eyes and ears: Patient has decreased hearing and vision. Neck: No stiffness. Respiratory: See present illness. Cardiac: No chest pain or palpitations. GI: In the past week patient has had constipation and abdominal pain. However this cleared when he took a laxative. Genitourinary: No dysuria or flank pain. Endocrine: Patient is diabetic but he does not have thyroid disease. Neurologic: No motor or sensory deficit. No seizures. The remainder of the patient's review of systems was completed and was negative. PREVIOUS HOSPITALIZATIONS AND OPERATIONS: He has had 3 laminectomies. The 1st laminectomy was complicated by infection. He has had 3 hernia repairs. He has had a cholecystectomy and appendectomy, carpal tunnel surgery, C-spine surgery, placement of coronary artery stents and admission for myocardial infarction. MEDICAL DISEASES: Positive for degenerative joint disease, diabetes mellitus, hypertension, myocardial infarction and coronary artery disease, COPD, hyperlipidemia and gastroesophageal reflux disease. INFECTIOUS DISEASE HISTORY: Positive for back infection following surgery. Also positive for pneumonia. FAMILY HISTORY: Positive for myocardial infarction and cancer. SOCIAL HISTORY: [place] ALLERGIES: He has an allergy to penicillin, sulfa and tetracycline by manifested by angioedema. He did received in the emergency room Rocephin and tolerated it well. HOME MEDICATIONS: Include zolpidem, pravastatin, pantoprazole, nitroglycerin, lisinopril, glipizide, gabapentin, furosemide, diltiazem, carvedilol, aspirin, amiodarone and albuterol. PHYSICAL EXAMINATION: Vital Signs: Temperature is 97.5 degrees, pulse 76, respirations 18, blood pressure 114/61, patient's weight is listed as 208 pounds. His height is 5 feet 11 inches tall. General: This is a somewhat ill-appearing elderly male. He is in no acute distress. Head eyes, ears, nose, and throat: He can see near objects. He had decreased hearing. He was wearing dentures. No mucosal lesions were noted. Neck: No meningismus. Thorax: Increased AP diameter of the chest. Lungs: Clear to auscultation. Cardiovascular: Heart rate is regular. Abdomen: Soft and nontender. Neurologic: The patient is awake . He can move his extremities. There is no tremor. His sensation is intact to touch. His memory as regarding his medical history was decreased. Integument: No rash noted. Thank you for the consult. [facility]
[2017-02-03] MEDS: LEVAQUIN 500 MG/D5W 100 ML IV SCH (16:23)
[2017-02-03] MEDS: XARELTO PO SCH (16:23)
[2017-02-03] MEDS: MAXIPIME 2 GM/NS 100 ML IV SCH (17:41)
[2017-02-03] MEDS: AMBIEN PO SCH (21:15)
[2017-02-04] MEDS ORDERED: NS IV SCH (01:00)
[2017-02-04] MEDS ORDERED: VANCOMYCIN IV SCH (01:00)
[2017-02-04] MEDS: DUONEB (A & A) INH SCH ×6 (02:35→22:53)
[2017-02-04] MEDS: MAXIPIME 2 GM/NS 100 ML IV SCH ×4 (02:47→17:53)
[2017-02-04] MEDS: SOLU-MEDROL IV SCH ×3 (04:37→20:30)
[2017-02-04] MEDS: LASIX PO SCH ×2 (04:37→16:01)
[2017-02-04 05:56] LABS: HEMATOCRIT 31.8 % (42.0-52.0); HEMOGLOBIN 9.9 g/dL (14.0-18.0); IMM GRAN# 0.09 X1000 (0.0-0.04); IMM GRAN% 1.1 % (0.0-0.5); LYMPH# 0.66 X1000 (1.2-3.4); LYMPH% 8.2 % (20.5-51.1); MANUAL DIFF NEEDED? YES; MCH 25.1 PG (27-31); MCHC 31.1 g/dL (33-37); MCV 80.7 FL (81-99); MONO# 0.11 X1000 (0.11-0.59); MONO% 1.4 % (1.7-9.3); MPV 9.8 FL (7.4-10.4); NEUT% 89.3 % (42.2-75.2); PLT 305 X1000 (130-400); RBC 3.94 XMIL (4.7-6.1)
[2017-02-04 06:16] LABS: HEMOGLOBIN A1C 5.9 % (4.8-6.0)
[2017-02-04] MEDS: HUMALOG SUBQ SCH ×4 (06:42→20:30)
[2017-02-04 07:00] LABS: BANDS 4 % (0-1); LYMPHS 8 % (21-51); MONO 4 % (1-9)
[2017-02-04 07:10] LABS: AGAP 14; BUN 21 mg/dL (8-22); CHLORIDE 101 mmol/L (98-107); COSMO 286; SODIUM 138 mmol/L (136-145); TCO2 23 mmol/L (25-35)
[2017-02-04 07:11] LABS: CALCIUM 8.7 mg/dL (8.8-10.2); POTASSIUM 4.9 mmol/L (3.5-5.1)
[2017-02-04] MEDS ORDERED: INSULIN PEN NEEDLES ONE (07:41)
[2017-02-04] MEDS: ADVAIR 250/50 DISKUS INH SCH ×2 (07:42→19:00)
[2017-02-04] MEDS: ASPIRIN EC PO SCH (08:35)
[2017-02-04] MEDS: PRINIVIL PO SCH (08:35)
[2017-02-04] MEDS: MIRALAX PO SCH (08:35)
[2017-02-04] MEDS: NEURONTIN PO SCH ×3 (08:35→20:30)
[2017-02-04] MEDS: KLOR-CON PO SCH (08:35)
[2017-02-04] MEDS: CARDIZEM PO SCH ×3 (08:35→20:32)
[2017-02-04] MEDS: PROTONIX PO SCH (08:35)
[2017-02-04] MEDS: COREG PO SCH ×2 (08:36→20:31)
[2017-02-04] MEDS: CORDARONE PO SCH ×2 (08:36→20:31)
[2017-02-04] MEDS: MUCINEX PO SCH ×2 (08:36→20:30)
[2017-02-04] MEDS: LANTUS SUBQ SCH (08:36)
[2017-02-04] MEDS: PRAVACHOL PO SCH (08:36)
--- NOTE | 2017-02-04 13:57 | PROGRESS NOTE ---
DATE: 02/04/2017 Today Mr. Iqbal refers to be doing a lot better. Shortness of breath is improving and he is not coughing as much and the sputum production is yellowish to white instead of greenish when he 1st presented. OBJECTIVE: Vital signs: Blood pressure is 147/76, pulse of 77, respirations 18, temperature 97.4 degrees. General: Mr. Iqbal is a 76-year-old male. He was in bed. He did not seem to be in any remarkable distress. HEENT: Mucosa is pink and moist. Anicteric. Acyanotic. Neck: Supple. Chest: Air entry is bilaterally reduced. There are some bilateral crepitations more so on the left than the right. Vocal fremitus is remarkably reduced to the left posterior lung mccarthy. Cardiovascular: Regular rate and rhythm. Abdomen: Soft, nontender. Extremities: No pedal edema. 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 There is no focal neurological deficit. LABORATORY DATA: WBC is 8.08, hemoglobin is 9.9, platelet count of 315,000. Chemistry is also reviewed. All is unremarkable except for glucose which is 227. A1c was checked and it is 5.9. ASSESSMENT: 1. Acute hypoxemic respiratory failure on presentation due to underlying pneumonia. 2. Multifocal pneumonia most predominantly on the left upper lobe. Recent chest x-ray done yesterday showed actually worsening of the image. ID was consulted and some changes have been done to the patient antibiotic regimen. 3. Bilateral pleural effusions likely due to underlying CHF. 4. History of end-stage COPD with chronic hypoxemia. Patient follows up with Dr. Torres. 5. Ischemic cardiomyopathy with ejection fraction of 25%. Will continue with his heart medications. 6. Diabetes mellitus with A1c of 5.9, however the glucose over here has been remarkably high and this is due to steroid induced hyperglycemia. Patient is on sliding scale. We are going to start him on 10 units of glargine to contribute as a long-acting insulin. There is the need for better glucose control. So in general I think Mr. Iqbal is clinically improving. We are going to continue with his current medications and repeat his chest x-ray hopefully on Monday to see if there is any better image after the antibiotic is done.
[2017-02-04] MEDS: LEVAQUIN 500 MG/D5W 100 ML IV SCH (16:00)
[2017-02-04] MEDS: XARELTO PO SCH (16:01)
[2017-02-04] MEDS: AMBIEN PO SCH (20:30)
[2017-02-05] MEDS: MAXIPIME 2 GM/NS 100 ML IV SCH ×5 (03:07→23:33)
[2017-02-05] MEDS: DUONEB (A & A) INH SCH ×7 (03:13→23:07)
[2017-02-05] MEDS: SOLU-MEDROL IV SCH ×3 (04:15→20:54)
[2017-02-05] MEDS: LASIX PO SCH ×2 (04:15→16:12)
[2017-02-05] MEDS: HUMALOG SUBQ SCH ×3 (06:22→16:12)
[2017-02-05] MEDS: ADVAIR 250/50 DISKUS INH SCH ×2 (07:55→19:11)
[2017-02-05] MEDS: PRAVACHOL PO SCH (09:12)
[2017-02-05] MEDS: PRINIVIL PO SCH (09:12)
[2017-02-05] MEDS: MIRALAX PO SCH (09:12)
[2017-02-05] MEDS: CARDIZEM PO SCH ×3 (09:12→20:55)
[2017-02-05] MEDS: ASPIRIN EC PO SCH (09:12)
[2017-02-05] MEDS: PROTONIX PO SCH (09:12)
[2017-02-05] MEDS: KLOR-CON PO SCH (09:12)
[2017-02-05] MEDS: NEURONTIN PO SCH ×3 (09:12→20:55)
[2017-02-05] MEDS: COREG PO SCH ×2 (09:12→20:55)
[2017-02-05] MEDS: MUCINEX PO SCH ×2 (09:12→20:54)
[2017-02-05] MEDS: CORDARONE PO SCH ×2 (09:12→20:55)
[2017-02-05] MEDS: LANTUS SUBQ SCH (09:13)
[2017-02-05] MEDS: LEVAQUIN 500 MG/D5W 100 ML IV SCH (14:17)
[2017-02-05] MEDS: XARELTO PO SCH (16:12)
--- NOTE | 2017-02-05 18:08 | PROGRESS NOTE ---
DATE: 02/05/2017 SUBJECTIVE: Today Ms. Iqbal refers to be doing fine. Still has some minimal cough and the sputum is more clear than before. It is not yellow or any more. OBJECTIVELY: Vitals: Blood pressure is 110/56, pulse of 79, respirations 18, temperature is 97 degrees. General: Mr. Iqbal 76-year-old female male. He is in bed, not seemingly distressed. HEENT: Mucosa is pink and moist. Anicteric. Acyanotic. Neck: Supple. Chest: Air entry is bilaterally reduced more so to the left. Vocal fremitus is remarkably reduced to the posterior lung mccarthy especially the left. There is some bilateral crepitations. Cardiovascular: Regular rate and rhythm. No murmurs, no rubs. Abdomen: Soft. Extremities: No pedal edema. CHAINMAN: Patient is alert and oriented x4. LABORATORY DATA: None for today. ASSESSMENT: 1. Acute hypoxemic respiratory failure on presentation due to underlying pneumonia. 2. Multifocal pneumonia most predominantly on the left upper lobe. 3. Bilateral pleural effusions likely due to underlying congestive heart failure. 4. 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 5. Ischemic cardiomyopathy with ejection fraction of 25%. 6. Diabetes mellitus stable. PLAN: 1. Patient is clinically stable. He is currently on levofloxacin and cefepime for antibiotics and we plan to continue. Today is day 2 on those medications. We are going to repeat a chest x-ray for tomorrow morning to follow up on the image. Will continue with his heart medications. 2. Depending on the chest x-ray report will follow up with ID recommendations as to home antibiotic.
[2017-02-05] MEDS: AMBIEN PO SCH (20:55)
[2017-02-06] MEDS: HUMALOG SUBQ SCH ×5 (00:21→20:31)
[2017-02-06] MEDS: DUONEB (A & A) INH SCH ×6 (03:12→23:27)
[2017-02-06] MEDS: LASIX PO SCH ×2 (04:35→16:04)
[2017-02-06] MEDS: SOLU-MEDROL IV SCH ×2 (04:35→16:05)
[2017-02-06] MEDS ORDERED: VANCOMYCIN IV PER PHARMACY MISC SCH (06:30)
--- NOTE | 2017-02-06 07:25 | PROGRESS NOTE ---
DATE: 02/06/2017 PRESENT ILLNESS: The patient is being treated for a pneumonia and a streptococcal bacteremia. MEDICATIONS: The patient is on cefepime and Levaquin. I added vancomycin today. He is also on steroids. PHYSICAL EXAMINATION: Vital Signs: Temperature is 97.8 degrees, pulse is 70, respirations 16, blood pressure 102/56. General: This is a somewhat ill-appearing elderly male. He is in no acute distress at this time. Lungs: The patient had expiratory wheezes. Cardiovascular: Heart rate is regular. Abdomen: Soft and nontender. LABORATORY AND X-RAY STUDIES: An x-ray has been ordered for today, but the results are pending. The patient's CBC shows a white count of 8010, hemoglobin 9.9, and platelet count 305,000. Creatinine is 1. GFR is greater than 60. ASSESSMENT AND PLAN: The patient has pneumonia. For right now, I am going to go with the current antibiotics, namely vancomycin, cefepime, and Levaquin, pending the results of the chest x-ray today. If there is much improvement, then possibly the patient could be sent home. COMORBIDITIES: He is elderly. He has COPD and gastroesophageal reflux disease and diabetes.
[2017-02-06] MEDS: ADVAIR 250/50 DISKUS INH SCH ×2 (07:52→19:08)
--- NOTE | 2017-02-06 08:01 | Diag Imaging Result Document ---
PROCEDURE NAME: CHEST-PORTABLE - 02/06/2017 PORTABLE CHEST X-RAY, 02/06/2017: COMPARISON: 02/03/2017. FINDINGS: Stable large consolidation at the left upper lobe. No new infiltrates. Stable cardiomegaly. Stable COPD changes. IMPRESSION: No change from prior.
[2017-02-06] MEDS: MAXIPIME 2 GM/NS 100 ML IV SCH ×3 (09:26→23:04)
[2017-02-06] MEDS: MUCINEX PO SCH ×2 (09:28→20:30)
[2017-02-06] MEDS: COREG PO SCH ×2 (09:28→20:30)
[2017-02-06] MEDS: ASPIRIN EC PO SCH (09:28)
[2017-02-06] MEDS: CARDIZEM PO SCH ×3 (09:28→20:31)
[2017-02-06] MEDS: CORDARONE PO SCH ×2 (09:28→20:30)
[2017-02-06] MEDS: KLOR-CON PO SCH (09:28)
[2017-02-06] MEDS: MIRALAX PO SCH (09:28)
[2017-02-06] MEDS: NEURONTIN PO SCH ×3 (09:29→20:30)
[2017-02-06] MEDS: PROTONIX PO SCH (09:29)
[2017-02-06] MEDS: PRINIVIL PO SCH (09:29)
[2017-02-06] MEDS: PRAVACHOL PO SCH (09:29)
[2017-02-06] MEDS: LANTUS SUBQ SCH (09:52)
[2017-02-06 10:43] LABS: MPV 9.5 FL (7.4-10.4)
[2017-02-06 10:56] LABS: PTT HEPARIN PROTOCOL 30.3 Seconds
[2017-02-06 10:57] LABS: INR 1.28
[2017-02-06] MEDS: NS IV SCH (11:47)
[2017-02-06] MEDS: VANCOMYCIN IV SCH (11:47)
[2017-02-06] MEDS ORDERED: NS 250 ML ONE (13:24)
[2017-02-06] MEDS: XARELTO PO SCH (16:05)
--- NOTE | 2017-02-06 18:14 | PROGRESS NOTE ---
DATE: 02/06/2017 SUBJECTIVE: Today Mr. Iqbal refers to be doing okay. He denies any shortness of breath. Still has some residual cough with some yellowish expectoration. OBJECTIVE: General Appearance: Mr. Iqbal is a 76-year-old male. He is in bed, in no distress. HEENT: Mucosa is pink and moist. Anicteric. Acyanotic. Neck: Supple. Vital Signs: Blood pressure is 112/62, pulse of 73, respiration is 16, temperature 97.7 degrees. Chest Exam: Good air entry bilateral. There is crepitations to the posterior lung mccarthy, more so to the left posterior where there is dullness to percussion and reduce in focal fremitus LABORATORY DATA: None for today. MEDICATIONS: Have been reviewed. No changes. ASSESSMENT: 1. Acute hypoxemic respiratory failure on presentation due to underlying pneumonia. 2. Multifocal pneumonia, most predominant on the left upper lobe. A recent chest x-ray this morning actually shows no change from prior but no new infiltrates. 3. Ischemic cardiomyopathy with ejection fraction of 25%. 4. Bilateral pleural effusions likely due to underlying congestive heart failure. 5. Diabetes mellitus, controlled. So in general, the patient is doing remarkably fine. A new chest x-ray has not shown any worsening of the imaging. Patient is clinically stable. I discussed the case with both the home appliance technician and infectious disease today. The plan is to get Mr. Iqbal a PICC line arranged for home antibiotics, which will be done by Dr. Todd and hopefully get the patient out tomorrow.
[2017-02-06] MEDS: LEVAQUIN 500 MG/D5W 100 ML IV SCH (18:47)
[2017-02-06] MEDS: AMBIEN PO SCH (20:30)
[2017-02-07] MEDS: DUONEB (A & A) INH SCH ×4 (03:09→15:57)
[2017-02-07] MEDS: LASIX PO SCH (04:54)
[2017-02-07] MEDS: SOLU-MEDROL IV SCH (04:54)
[2017-02-07 06:02] LABS: BASO% 0.1 % (0.0-0.8); HEMATOCRIT 31.9 % (42.0-52.0); HEMOGLOBIN 10.2 g/dL (14.0-18.0); IMM GRAN# 0.13 X1000 (0.0-0.04); IMM GRAN% 1.2 % (0.0-0.5); LYMPH# 0.73 X1000 (1.2-3.4); LYMPH% 6.7 % (20.5-51.1); MANUAL DIFF NEEDED? YES; MCH 25.8 PG (27-31); MCV 80.6 FL (81-99); MONO# 0.64 X1000 (0.11-0.59); MONO% 5.9 % (1.7-9.3); MPV 9.8 FL (7.4-10.4); NEUT% 86.1 % (42.2-75.2); PLT 301 X1000 (130-400); RBC 3.96 XMIL (4.7-6.1)
[2017-02-07] MEDS: HUMALOG SUBQ SCH ×3 (06:20→16:09)
[2017-02-07 06:26] LABS: AGAP 11; BUN 33 mg/dL (8-22); CHLORIDE 102 mmol/L (98-107); COSMO 290; POTASSIUM 4.6 mmol/L (3.5-5.1); SODIUM 137 mmol/L (136-145); TCO2 24 mmol/L (25-35)
[2017-02-07 06:57] LABS: BANDS 1 % (0-1); LYMPHS 6 % (21-51); MONO 6 % (1-9)
[2017-02-07] MEDS: ADVAIR 250/50 DISKUS INH SCH (07:46)
--- NOTE | 2017-02-07 07:53 | PROGRESS NOTE ---
DATE: 02/07/2017 PRESENT ILLNESS: The patient is being treated for pneumonia and a streptococcal bacteremia. MEDICATIONS: The patient is on a combination of vancomycin, cefepime and Levaquin. PHYSICAL EXAMINATION: Vital Signs: Temperature is 97.6 degrees, pulse 71, respirations 18, blood pressure 120/66. General: The patient today looks much better. He is alert. He is not complaining of any trouble breathing. Lungs: Clear to auscultation. Cardiovascular: Regular heart rate. Abdomen: Soft and nontender. Extremities: Patient has a PICC in the right arm. The PICC site is not erythematous or swollen. LAB AND X-RAY: The patient had a chest x-ray yesterday. It showed stable left upper lobe consolidation. Laboratory work today [place] [address], hemoglobin 10.2, and platelet count 301,000. Creatinine is 1.1. GFR is greater than 60. Legionella and pneumococcal urinary antigens are negative. ASSESSMENT AND PLAN: The patient has pneumonia. I think he could go home and take cefepime and vancomycin intravenously and Levaquin by mouth. I have consulted [facility] to supply the patient's antibiotics. I printed up a prescription for Levaquin for 2 weeks. The patient's comorbidity is he is elderly, has COPD, gastroesophageal reflux disease and diabetes. My plan would be to send the patient home today and I will see him back my office in 2 weeks. MTDD
[2017-02-07] MEDS: MAXIPIME 2 GM/NS 100 ML IV SCH (08:33)
[2017-02-07] MEDS: MIRALAX PO SCH (08:33)
[2017-02-07] MEDS: CORDARONE PO SCH (08:34)
[2017-02-07] MEDS: MUCINEX PO SCH (08:34)
[2017-02-07] MEDS: NEURONTIN PO SCH ×2 (08:34→15:59)
[2017-02-07] MEDS: PRAVACHOL PO SCH (08:34)
[2017-02-07] MEDS: COREG PO SCH (08:34)
[2017-02-07] MEDS: KLOR-CON PO SCH (08:35)
[2017-02-07] MEDS: CARDIZEM PO SCH ×2 (08:35→15:59)
[2017-02-07] MEDS: PROTONIX PO SCH (08:35)
[2017-02-07] MEDS: ASPIRIN EC PO SCH (08:35)
[2017-02-07] MEDS: PRINIVIL PO SCH (08:35)
[2017-02-07] MEDS: LANTUS SUBQ SCH (09:35)
[2017-02-07] MEDS: NS IV SCH (10:06)
[2017-02-07] MEDS: VANCOMYCIN IV SCH (10:06)
[2017-02-07 11:23] VITALS: BP 111/64
--- NOTE | 2017-02-07 15:43 | PROGRESS NOTE ---
DATE: 02/07/2017 ADDENDUM: There has been a slight change in the patient's treatment. Instead of doing his antibiotics at home, he will be coming to the outpatient clinic at [facility] due to financial considerations. Specifically, the patient will get vancomycin 1750 mg IV daily and Invanz 1 g IV daily. He also has a prescription for Levaquin to be taken by mouth. I have also written for a CBC, creatinine, and a vancomycin trough level to be drawn every Monday. All of these orders are for 2 weeks at which time I will be seeing the patient in the office and hopefully we will be able to stop his antibiotics.
[2017-02-07] MEDS ORDERED: LEVAQUIN PO SCH (18:00)
--- NOTE | 2017-02-07 20:31 | DISCHARGE SUMMARY ---
ADMISSION DATE: 01/30/2017 DISCHARGE DATE: 02/07/2017 CONSULTATIONS: 1. Vinnie Frye M.D., Cardiology. 2. Hadley Nichole M.D., Pulmonology. 3. Baldemar Todd M.D., Infectious Disease. PERTINENT PROCEDURES: 1. Pulmonary arteriogram showed the possibility of endobronchial lesion in the left upper lobe with postobstructive pneumonitis and metastatic disease suggested, bilateral pleural effusions worse on the left than right possibly malignant, mediastinal and left hilar adenopathy, no evidence of PE. 2. Abdominal x-ray showed no acute disease. DISCHARGE DIAGNOSES: 1. Acute hypoxic respiratory failure on presentation secondary to underlying pneumonia. 2. Multifocal pneumonia most predominant in the left upper lobe. 3. Ischemic cardiomyopathy with EF of 25%. 4. Bilateral pleural effusions likely due to underlying congestive heart failure. 5. Diabetes mellitus controlled. HOSPITAL COURSE: Briefly, Mr. Iqbal is a 76-year-old, male with known history of coronary artery disease, paroxysmal atrial fibrillation, stent placement in the past, congestive heart failure. He was admitted back in September 2016 for heart failure. He did follow up with his regular residential field manager in [place] in November. Prior to admission for the last 10 days the patient had been experiencing increased shortness of breath associated with cough with purulent sputum production. Patient did have an elevated D-dimer while in the ED. He underwent a pulmonary arteriogram that showed the possibility of endotracheal lesion in the left upper lobe with postobstructive pneumonitis and static disease was suggested, bilateral pleural effusions worse on the right than the left possibly malignant, mediastinal left hilar adenopathy, no evidence of pulmonary embolus. Dr. Nichole was consulted along with Dr. Frye. He was started on broad-spectrum antibiotics. Dr. Nichole felt that with the patient's grossly purulent sputum production and marked change in his chest x-ray in less than 1 month, that this represented a pneumonia not metastatic disease. They also felt that since the patient has multiple allergies to medications. 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 He does have anaphylaxis to penicillin, sulfa drugs and tetracycline. Dr. Nichole recommended to continue Levaquin, initiate vancomycin for gram-positive as well as aztreonam until this sputum culture returns, and O2 as needed for his acute hypoxic respiratory failure. Dr. Frye started the patient on IV steroids. His amiodarone was decreased to 200 mg daily. He was in atrial fibrillation but his rate was controlled. He continued on Cardizem and beta- blockers. Dr. Baldemar Todd with Infectious Disease was also consulted. Patient was changed to a combination of vancomycin, Levaquin and cefepime. His last chest x-ray done on 02/06 showed stable large consolidation at the left upper lobe, no new infiltrate, stable cardiomegaly as well as stable COPD changes. It was felt that the patient could go home on a combination of IV antibiotics as well as p.o. Levaquin. [facility] has been consulted by Dr. Todd to supply the patient's antibiotics. Again he will go home with Levaquin for 2 weeks as well as vancomycin and cefepime, and he will see Dr. Todd back in his office in 2 weeks. VITAL SIGNS AT TIME OF DISCHARGE: Temperature is 98.8 degrees, heart rate 72, respirations 16, blood pressure 111/64, O2 is 93% on 3 L nasal cannula. DISCHARGE DIET: Diabetic. DISCHARGE MEDICATIONS: 1. Albuterol sulfate 0.6 mg nebulizer p.r.n. 2. ProAir inhaler 1 puff inhaled p.r.n. 3. Nitroglycerin 0.4 mg sublingual p.r.n. 4. Aspirin 81 mg p.o. daily. 5. Cardizem 60 mg p.o. t.i.d. 6. Coreg 3.125 mg p.o. b.i.d. 7. Amiodarone 200 mg p.o. b.i.d. 8. Glipizide ER 10 mg p.o. daily. 9. Metformin 1000 mg p.o. b.i.d. 10. Lasix 40 mg p.o. daily. 11. Lisinopril 10 mg p.o. daily. 12. Neurontin 100 mg p.o. t.i.d. 13. Pravastatin 40 mg p.o. daily. 14. Protonix 40 mg p.o. daily. 15. Ambien 5 mg p.o. daily. 16. Zoloft 100 mg p.o. daily. 17. Levaquin 500 mg p.o. daily for 14 days. 18. Prednisone 12 mg p.o. daily. 19. IV vancomycin and IV cefepime as per Dr. Todd. Set up with [facility]. DISCHARGE DIET: Diabetic. FOLLOWUP: 1. Patient is being discharged home with home health and [facility]. 2. Patient will need to follow up with Dr. Baldemar Todd in 2 weeks and well as his primary care physician, Dr. Chacha Phipps. 3. Patient can return to the ED for any worsening of symptoms. DISCHARGE TIME: Greater than 30 minutes. Dictated by SUMAN Perez for Keith Herrera MD
[2017-02-08] MEDS ORDERED: PREDNISONE PO SCH (09:00)
--- NOTE | 2017-02-16 18:17 | DISCHARGE SUMMARY ---
ADMISSION DATE: 01/30/2017 DISCHARGE DATE: 02/07/2017 DISCHARGE SUMMARY ADDENDUM: DIAGNOSIS: Postobstructive pneumonia. No further specification can be provided.
== END 2017-02-07 16:36 | disposition home health service (06) | DRG 291 ==
LOC: ED 09:00 → 3S 11:59 → EDIPHOLD 12:22 → UNDOADMIN 12:22
PROVIDERS: ATTEND Internal Medicine
PROC: 02HV33Z Insertion of Infusion Device into Superior Vena Cava, Percutaneous Approach (ICD-10-PCS; principal; 2017-02-06)
DX: I50.23 Acute on chronic systolic (congestive) heart failure (principal); J18.9 Pneumonia, unspecified organism; J96.21 Acute and chronic respiratory failure with hypoxia; I27.2 Other secondary pulmonary hypertension; J84.10 Pulmonary fibrosis, unspecified; E11.65 Type 2 diabetes mellitus with hyperglycemia; Z99.81 Dependence on supplemental oxygen; J44.0 Chronic obstructive pulmonary disease with (acute) lower respiratory infection; J44.1 Chronic obstructive pulmonary disease with (acute) exacerbation; I25.5 Ischemic cardiomyopathy; I48.0 Paroxysmal atrial fibrillation; I25.2 Old myocardial infarction; I25.10 Atherosclerotic heart disease of native coronary artery without angina pectoris; I10 Essential (primary) hypertension; E78.5 Hyperlipidemia, unspecified; K21.9 Gastro-esophageal reflux disease without esophagitis; M19.90 Unspecified osteoarthritis, unspecified site; F17.210 Nicotine dependence, cigarettes, uncomplicated; Z79.899 Other long term (current) drug therapy; Z79.82 Long term (current) use of aspirin; Z79.84 Long term (current) use of oral hypoglycemic drugs; Z86.73 Personal history of transient ischemic attack (TIA), and cerebral infarction without residual deficits; Z95.5 Presence of coronary angioplasty implant and graft; Z82.49 Family history of ischemic heart disease and other diseases of the circulatory system; Z80.9 Family history of malignant neoplasm, unspecified; T38.0X5A Adverse effect of glucocorticoids and synthetic analogues, initial encounter
CPT/HCPCS: 36569; 71010; 71275; 74000; 80048; 80053; 80202; 81001; 82550; 82805; 82948; 83036; 83690; 83735; 83880; 84443; 84484; 85025; 85027; 85049; 85379; 85610; 85730; 87040; 87070; 87077; 87088; 87186; 87205; 87899; 93005; 94640; 94761; 96374; 96375; J0692; J0696; J1650; J1815; J1940; J2920; J2930; J3370; J7040; J7050; Q9967; S0073

== ENCOUNTER 2017-04-26 13:30 | Inpatient (IN) ==
[2017-04-26] MEDS ORDERED: ASPIRIN PO STA (14:42)
--- NOTE | 2017-04-26 15:28 | Diag Imaging Result Doc PS360 ---
EXAM: CHEST-PORTABLE HISTORY: dyspnea TECHNIQUE: AP portable upright at 1500 two views COMMENT: There is increasing alveolar opacification in the left upper lobe compared to 04/11/2017. There is also diffuse interstitial opacity in the right lower lobe which was not present previously. IMPRESSION: Worsened left upper lobe pneumonia plus minus atelectasis. Pneumonia right lower lobe. Electronically signed by Hu Arguello 04/26/2017 3:26 PM
--- NOTE | 2017-04-26 16:01 | EKG Report ---
Test Performed on : 04/26/2017 1:44:06 PM Test Reason : Chest Pain Blood Pressure : / mmHG Vent. Rate : 091 BPM Atrial Rate : 091 BPM P-R Int : 000 ms QRS Dur : 094 ms QT Int : 448 ms P-R-T Axes : 000 074 086 degrees QTc Int : 551 ms Accelerated Junctional rhythm. 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
[2017-04-26 16:11] LABS: BASO% 0.1 % (0.0-0.8); EOS# 0.02 X1000 (0.0-0.7); EOS% 0.3 % (0.0-10.0); HEMATOCRIT 29.8 % (42.0-52.0); HEMOGLOBIN 9.3 g/dL (14.0-18.0); IMM GRAN# 0.07 X1000 (0.0-0.04); IMM GRAN% 0.9 % (0.0-0.5); INR 1.04; LYMPH# 0.38 X1000 (1.2-3.4); LYMPH% 5.1 % (20.5-51.1); MANUAL DIFF NEEDED? NO; MCH 24.3 PG (27-31); MCHC 31.2 g/dL (33-37); MCV 77.8 FL (81-99); NEUT% 89.6 % (42.2-75.2); PLT 257 X1000 (130-400); PTT 30.8 Seconds (22.0-36.0); RBC 3.83 XMIL (4.7-6.1)
[2017-04-26 16:31] LABS: ALBUMIN 2.8 g/dL (3.5-5.0); CALCIUM 8.6 mg/dL (8.8-10.2); MAGNESIUM 1.5 mg/dL (1.5-2.7); POTASSIUM 3.9 mmol/L (3.5-5.1); TOTAL BILIRUBIN 0.26 mg/dL (0.20-1.00); TOTAL PROTEIN 7.1 g/dL (6.3-8.3)
[2017-04-26] MEDS ORDERED: LEVAQUIN 500 MG/D5W 500 MG/100 ML IVPB IV ONE (16:41)
--- NOTE | 2017-04-26 16:47 | ED EKG INTERP ---
This chart was entered by Bernadette Galaviz Scribe, acting as scribe for Delgado White MD. EKG Interpretation - EKG Time of EKG reading by physician:: 13:44 EKG Read and Signed by:: Delgado White EKG Interpretation (*Must complete 3 of following elements*): Abnormal Rate: 91 Rhythm: accelerated junctional rhythm Comments: low voltage QRS; septal infarct, age undetermined This chart was documented by the indicated scribe, (Bernadette Galaviz Scribe) and accurately reflects the services I performed and decisions made by Christopher carrasco Christophe I, MD, as attested by the provider's signature.
--- NOTE | 2017-04-26 16:48 | PROVIDER DOCUMENTATION ---
This chart was entered by Bernadette Galaviz Scribe, acting as scribe for Delgado White MD. HPI-Respiratory General - General Chief Complaint: Shortness of Breath Stated Complaint: TROUBLE BREATHING Time Seen by Provider: 04/26/17 14:28 Source: patient, family () Allergies/Adverse Reactions: Patient Allergies Allergy/AdvReac Type Severity Reaction Status Date / Time meperidine HCl * Allergy Severe SHORTNESS Verified 04/26/17 14:43 [From Demerol] OF BREATH midazolam HCl * [From Versed] Allergy Severe SHORTNESS Verified 04/26/17 14:43 OF BREATH Penicillins Allergy Severe ANAPHYLAXIS Verified 04/26/17 14:43 tetracycline Allergy Severe ANAPHYLAXIS Verified 04/26/17 14:43 Sulfa (Sulfonamide AdvReac Severe ANAPHYLAXIS Verified 04/26/17 14:43 Antibiotics) Home Medications: Home Medication List Medication Instructions Recorded Confirmed Last Taken Type Albuterol Sulfate [Proair Hfa] 1 puff INH PRN PRN 10/24/16 04/26/17 04/26/17 History Amiodarone [Cordarone] 200 mg PO DAILY 10/24/16 04/26/17 04/26/17 07:30 History Aspirin [Aspirin EC] 81 mg PO DAILY 10/24/16 04/26/17 04/26/17 07:30 History Diltiazem [Cardizem] 60 mg PO TID 10/24/16 04/26/17 04/26/17 13:00 History Furosemide [Lasix] 40 mg PO BID 10/24/16 04/26/17 04/26/17 13:00 History Gabapentin [Neurontin] 100 mg PO TID 10/24/16 04/26/17 04/26/17 13:00 History Glipizide [Glipizide ER] 10 mg PO DAILY 10/24/16 04/26/17 04/26/17 07:30 History Lisinopril 10 mg PO DAILY 10/24/16 04/26/17 04/26/17 07:30 History Metformin [Glucophage] 1,000 mg PO BID 10/24/16 04/26/17 04/26/17 07:30 History Nitroglycerin [Nitroglycerin 0.4 mg SL PRN PRN 10/24/16 04/26/17 01/29/17 07:00 History Lingual [place]] 0.4 MG Pantoprazole [Protonix] 40 mg PO DAILY 10/24/16 04/26/17 04/25/17 19:00 History Pravastatin Sodium 40 mg PO DAILY 10/24/16 04/26/17 04/25/17 History Sertraline HCl [Zoloft] 100 mg PO DAILY 01/30/17 04/26/17 04/26/17 07:30 History Albuterol Sulfate 2.5 mg IH Q6H PRN 04/26/17 04/26/17 04/26/17 08:00 History Fluticasone 50 Mcg Nasal [place] 1 spray STAR DIRECTED 04/26/17 04/26/17 History [Flonase] Prednisone 10 mg PO DAILY 04/26/17 04/26/17 04/26/17 07:30 History Tamsulosin [Flomax] 0.4 mg PO QHS 04/26/17 04/26/17 04/25/17 History - History of Present Illness-Resp Nature of Presenting Problem: Pt is 76 y/o M presents to the ED with SOB. Pt states SOB started 4 days ago. Pt states SOB worsened today. Pt denies F. Quality of Pain: reports: tightness Severity in ED: reports: moderate Onset/Duration: reports: 4 days ago Timing: reports: still present, getting worse Exposure: reports: unknown cause Cough Quality/Degree: reports: moderate, sputum (yellow) Current Respiratory Medication Therapy: Initiated see nurses note Modifying Factors: improves with: nothing Associated Symptoms: reports: cough, hurts to breathe, shortness of breath Similar Symptoms Previously?: Yes Recently seen or treated by another doctor?: No Review of Systems - Adult - REVIEW OF SYSTEMS - ADULT Constitutional: denies: chills, fever Eyes: denies: blurred vision, double vision Ears, Nose, Mouth & Throat: denies: ear pain, nose pain, throat pain Cardiovascular: denies: chest pain, heart murmur, irregular heart rate Respiratory: reports: cough, shortness of breath. denies: wheezing Gastrointestinal: denies: abdominal pain, diarrhea, nausea, vomiting Genitourinary: denies: dysuria, hematuria Musculoskeletal: denies: bone pain, joint pain, neck pain Integumentary: denies: hives, itching Neurological: denies: dizziness/vertigo, headache/migraines Psychiatric: reports: no symptoms reported Endocrine: reports: no symptoms reported Hematologic/Lymphatic: reports: no symptoms reported Allergic/Immunologic: reports: no symptoms reported All Other Systems: Reviewed and Negative Past History - Adult - PAST MEDICAL HISTORY-ADULT Review of Records: reports: Nursing Assessment Review, Medications Reviewed, Social history reviewed & non-contributory. Major Childhood Illnesses: reports: denies history Cardiovascular: reports: CAD, CHF, HTN, hyperlipidemia, [place] Respiratory: reports: COPD Gastrointestinal: reports: GERD Obstetrical/Gynecological: reports: denies history Genitourinary: reports: denies history Musculoskeletal: reports: denies history Neurological: reports: CVA Endocrine/Immune: reports: denies history Other Conditions: reports: denies history - PRIOR SURGERIES/PROCEDURES Surgical/Procedure History: reports: appendectomy, cholecystectomy, cardiac stent, hernia repair, other (cataract) - IMMUNIZATION STATUS Childhood Immunizations: See Nurse Assessment Flu Vaccine: See Nurse Assessment - FAMILY HISTORY Family History: reviewed, not pertinent - SOCIAL HISTORY Smoking: quit greater than 1 year, cigarettes Substance Use: denies Living Situation: family Physical Exam-General - PHYSICAL EXAM-ADULT Initial Vital Signs Reviewed: Yes - CONSTITUTIONAL General Appearance: appears well, alert, no apparent distress - EYES Eyes: PERRL/EOMI, pink conjunctivae - HEAD, EARS, NOSE, MOUTH & THROAT HENMT: normocephalic/atraumatic, moist mucous membranes, normal ENT inspection - NECK Neck: non-tender, full range of motion, supple, normal inspection - RESPIRATORY Respiratory: chest non-tender, lungs clear, normal breath sounds - CARDIOVASCULAR Cardiovascular: normal peripheral pulses, regular rate, rhythm - GASTROINTESTINAL (ABDOMEN) Abdominal Exam: normal bowel sounds, non tender, soft - LYMPHATIC Lymphatic: no adenopathy - MUSCULOSKELETAL Back Exam: normal inspection, no CVA tenderness, no vertebral tenderness Extremity: normal range of motion, non-tender, normal gait, normal inspection - SKIN Integumentary: normal color, normal turgor, warm/dry - NEUROLOGIC Neurologic: grossly normal - PSYCHIATRIC Psych/Mental Status: normal mood/affect, oriented x 3 Progress - PLAN OF CARE/RESULTS Progress/Plan/Lab Results: Vital Signs - 8 hr 04/26/17 13:45 04/26/17 16:33 Temperature 97.8 F Pulse Rate 89 81 Respiratory Rate 20 18 Blood Pressure 105/58 104/52 O2 Sat by Pulse Oximetry 84 L 92 L Laboratory Results - last 24 hr 04/26/17 04/26/17 04/26/17 15:25 15:25 15:25 WBC 7.48 RBC 3.83 L Hgb 9.3 L Hct 29.8 L MCV 77.8 L MCH 24.3 L MCHC 31.2 L RDW Std Deviation 18.4 H Plt Count 257 MPV 10.0 Immature Gran % (Auto) 0.9 H Neut % (Auto) 89.6 H Lymph % (Auto) 5.1 L D[place] % (Auto) 4.0 Eos % (Auto) 0.3 Baso % (Auto) 0.1 Immature Gran # (Auto) 0.07 H Neut # (Auto) 6.70 H Lymph # (Auto) 0.38 L D[place] # (Auto) 0.30 Eos # (Auto) 0.02 Baso # (Auto) 0.01 PT INR PTT (Actin FS) Sodium 135 L Potassium 3.9 Chloride 94 L Carbon Dioxide 23 L Anion Gap 18 BUN 24 H Creatinine 1.2 Estimated GFR/1.73 m2 59 BUN/Creatinine Ratio 20 Glucose 301 H Calculated Osmolality 285 Calcium 8.6 L Magnesium 1.5 Total Bilirubin 0.26 AST 33 ALT 32 Alkaline Phosphatase 72 Creatine Kinase 43 Troponin T [id number] Pept 3625 H Total Protein 7.1 Albumin 2.8 L Globulin 4.3 Albumin/Globulin Ratio 0.7 04/26/17 04/26/17 15:25 15:25 WBC RBC Hgb Hct MCV MCH MCHC RDW Std Deviation Plt Count MPV Immature Gran % (Auto) Neut % (Auto) Lymph % (Auto) Dade % (Auto) Eos % (Auto) Baso % (Auto) Immature Gran # (Auto) Neut # (Auto) Lymph # (Auto) Dade # (Auto) Eos # (Auto) Baso # (Auto) PT 11.0 INR 1.04 PTT (Actin FS) 30.8 Sodium Potassium Chloride Carbon Dioxide Anion Gap BUN Creatinine Estimated GFR/1.73 m2 BUN/Creatinine Ratio Glucose Calculated Osmolality Calcium Magnesium Total Bilirubin AST ALT Alkaline Phosphatase Creatine Kinase Troponin T 0.030 Bne-Q-Xyvrtfjiysh Pept Total Protein Albumin Globulin Albumin/Globulin Ratio Orders Category Date Time Status Cardiac Monitoring DIRECTED Care 04/26/17 14:42 Active Oxygen Therapy- ED Nursing DIRECTED Care 04/26/17 14:42 Active Saline Loc NOW Care 04/26/17 14:42 Active CHEST-PORTABLE [RAD] Stat Exams 04/26/17 14:43 Completed CBC WITH ELECTRONIC DIFF [HEME] Stat Lab 04/26/17 15:25 Completed CK PROFILE [SP CHEM] Stat Lab 04/26/17 15:25 Completed COMPREHENSIVE METABOLIC PANEL [CHEM] Stat Lab 04/26/17 15:25 Completed MAGNESIUM [CHEM] Stat Lab 04/26/17 15:25 Completed PRO B-NATRIURETIC PEPTIDE Stat Lab 04/26/17 15:25 Completed PROTIME WITH INR [COAG] Stat Lab 04/26/17 15:25 Completed PTT [COAG] Stat Lab 04/26/17 15:25 Completed TROPONIN T Stat Lab 04/26/17 15:25 Completed Aspirin Med 04/26/17 14:42 Discontinued 325 mg PO STAT STA Levaquin 500 mg/D5w IV Now Med 04/26/17 16:41 Ordered Levofloxacin 500 mg/D5w [Levaquin 500 mg/D5w] 500 mg in 100 ml IV NOW EKG [EKG] Stat Ther 04/26/17 14:42 Draft Result Diagrams: 04/26/17 15:25 04/26/17 15:25 - XRAY 1 XRAY Study: Chest Impression: Abnormal (pneumonia right lower lobe) XRAY Interpretation: worsened left upper lobe pneumonia plus minus atelectasis. - CONSULTS/PCP/HOSPITALIST Notification #1 *Consult/PCP/Hospitalist*: Dr. Herrera Time Discussed: 16:38 Reason/Comments: Dr. White consulted with Dr. Herrera about admit of PT Consult Disposition: Admit Departure - Departure Date of Disposition Decision: 04/26/17 Time of Disposition Decision: 16:38 DIAGNOSIS: Left upper lobe pneumonia, Shortness of breath Disposition: ADMITTED INPATIENT 09 Certified Medical Emergency: Emergent Condition: Critical Referrals and Follow-Ups: Chacha Phipps MD [Primary Care Provider] - - Critical Care Note This patient required my direct & personal management of CC.: No Attestation - Physician/ KIM Attestation The physician spent face to face time with patient:: Yes Advanced Practice Provider documentation review:: The physician spent face to face time with this patient and agrees with all MLP documentation, treatment, and medical decision making by the MLP. See provider notes for further information. This chart was documented by the indicated scribe, (Bernadette Galaviz, Lew) and accurately reflects the services I performed and decisions made by Christopher carrasco Christophe I, MD, as attested by the provider's signature.
[2017-04-26] MEDS ORDERED: AZACTAM 1 GM in NS 50 ML IV ONE (17:12)
[2017-04-26] MEDS ORDERED: ZYVOX PO ONE ×2 (17:12→19:30)
--- NOTE | 2017-04-26 18:18 | HISTORY AND PHYSICAL ---
PRIMARY CARE DOCTOR: Dr. Phipps. MINER HELPER: Dr. Nichole. INFECTIOUS DISEASE: Dr. Todd. PRESENTING COMPLAINT: Shortness of breath and productive cough. HISTORY OF PRESENTING COMPLAINT: Mr. Iqbal is a 76-year-old male who just recently got discharged from the hospital on 02/16/2017 after spending almost 2 weeks in the hospital for left upper lobe pneumonia. According to him, even after he got discharged he still got a few days of IV outpatient antibiotics and also about 2 weeks of p.o. levofloxacin with Dr. Todd and he was eventually discharged. He was told, however, that the image of the left upper lobe is persistent but has not gotten any worse. Patient also follows up with Dr. Nichole and according to him, he has had multiple x-rays done; the last 1 was just about 2 weeks ago. According to Mr. Iqbal he was relatively doing fine until about 4 days ago. He started having some shortness of breath on exertion which progressively got worse. According to him, he normally uses about 2 pillows to sleep and this has been going on since his last admission in January. He also refers to have some increase in production of sputum. Especially early in the morning, he said the sputum is dark, is greenish, and it looks yucky and horrible. According to the , Mr. Iqbal has also been having some chills and some sweats. Denies fever. Patient therefore came to the emergency department because of persistent shortness of breath. According to him he has had to increase his oxygen demand from about 3 L to 4 L of late and even with that, his O2 saturation has been in the low 90s to 80s. PAST MEDICAL HISTORY: Of note, Mr. Iqbal also has multiple past medical histories including severe COPD with chronic hypoxemic respiratory failure, myocardial infarction status post stenting in the RCA in 1999, LAD in 2004, circumflex in 2010, ischemic cardiomyopathy with ejection fraction of 25%, and persistent atrial fibrillation. SOCIAL HISTORY: Extensive tobacco use in the past but not recently. No alcohol. Patient is and lives with the . FAMILY HISTORY: Noncontributory. ALLERGIES: 1. Penicillin. 2. Meperidine. 3. Tetracyclines. PAST SURGICAL HISTORY: Multiple stents as dictated above. REVIEW OF SYSTEMS: A 14 point review of system conducted with the patient and unremarkable except for what we have in the HPI. Specifically, patient denies any chest pain. No diarrhea. No abdominal pain. PHYSICAL EXAMINATION: VITAL SIGNS: Blood pressure is 104/52, pulse is 81, respirations 18, temperature is 97.8 degrees. The patient was saturating about 84% on presentation on room air. This went up to about 92% on oxygen. GENERAL: Mr. Iqbal is a 76-year-old male. He is in bed, in mild respiratory distress. HEENT: Mucosa is pink and moist. Anicteric and acyanotic. Head is normocephalic and atraumatic. NECK: Supple. There is no JVD and no carotid bruit. CHEST: Air entry is bilaterally reduced. There is prolonged phase of expiration. I did not really appreciate any rhonchi, but there are a few bibasilar crepitations. CARDIOVASCULAR: Regular rate and rhythm. Did not appreciate any murmurs or rubs. No gallops. ABDOMEN: Soft, nontender. Bowel sounds are present. No hepatosplenomegaly. EXTREMITIES: No pedal edema. FOREIGN LANG[employer]AGES DEPARTMENT CHAIR: Patient is alert and oriented x4. Executive function seems to be intact. Motor is 5/5. There is no sensory deficit. Cranial nerves 2 through 12 are grossly examined and unremarkable. LABORATORY DATA: WBC is 7.48, hemoglobin is 9.3, platelet count of 257,000. Chemistry is reviewed. Sodium is 135, potassium is 3.9, chloride is 94, bicarb is 23, creatinine is 1.9. ProBNP is 3,625. Chest x-ray done shows worsening left upper lobe pneumonia +/- atelectasis, pneumonia right lower lobe. ASSESSMENT: Mr. Iqbal is a 76-year-old male who was discharged from the hospital in January after having been treated for over 2 weeks with IV antibiotics. Went home on IV antibiotics. After a few weeks of therapy he was also switched to p.o. levofloxacin, yet he has been back with worsening left upper lobe pneumonia and also some right lower lobe. 1. Acute on chronic hypoxemic respiratory failure. 2. Multifocal pneumonia. 3. Recurrent left upper lobe pneumonia, suspected postop obstructive pneumonia. 4. Congestive heart failure with ejection fraction of about 25% in the past. ProBNP is a little elevated so patient could potentially also be having congestive heart failure decompensation contributing to his shortness of breath. 5. History of ischemic cardiomyopathy with multiple stents in the past. 6. Diabetes mellitus. 7. Severe chronic obstructive pulmonary disease on home 2 oxygen. PLAN: So we are going to admit Mr. Iqbal to [facility] with telemetry monitoring and baseline oxygen. Will start him on IV antibiotics including aztreonam and linezolid since patient has already had enough therapy with cefepime and vancomycin and patient has come out with worsening symptoms. I think the patient will need to have a bronchoscopy because he seems to be having recurrent pneumonia the same place and this is concerning for a postobstructive pneumonia and endobronchial lesion needs to be evaluated at this point in time. We will consult Dr. Nichole to evaluate him and make a decision in that regard. We will also consult Dr. Todd to re-evaluate the patient and give us some recommendations on antibiotics. Patient looks a little bit dry. However, we know he has severe congestive heart failure as well. We will do a CT scan of the chest mainly for the lung disease but it will also give us some idea if he has significant pleural effusions. For now, I would hold off on his diuretics and restart him on his home medications. The patient also has a significant history of atrial fibrillation. We will restart him on his amiodarone, his diltiazem, and all of his good heart medications. We will give further recommendations during the hospital course. CRITICAL TIME: Spent was 45 minutes. cc: Keith Herrera MD
[2017-04-26] MEDS ORDERED: NITROGLYCERIN SL PRN (18:37)
--- NOTE | 2017-04-26 18:38 | Diag Imaging Result Doc PS360 ---
EXAM: CT THORAX W/CONTRAST HISTORY: pneumonia TECHNIQUE: CT of the chest with intravenous contrast with reduced dose (clarity.) COMMENT: There is severe emphysematous change throughout both lungs. Compared to the previous study of 02/28/2017, there is improvement in the consolidation and volume loss previously present in the left upper lobe. There is opacification in the mid to left lower lobe which was not previously present. Patchy opacity in the posterior costophrenic sulcus of the left lower lobe was not present previously. There is ill-defined opacity throughout the right middle lobe which was not previously present. A similar opacity is present in the right upper lobe with areas of more dense consolidation in the posterior lateral inferior right middle lobe. There has been improvement in the atelectasis in the medial portion of the right middle lobe however. There are small prevascular paratracheal and aorticopulmonary window nodes which do not appear to have changed significantly since the previous study. Slight worsening of adenopathy in the subcarina is present. IMPRESSION: Patchy bronchopneumonia as described. This is worse or was not present at all of the time of the previous study of 02/28/2017, with the exception of the left upper lobe which has improved. Electronically signed by Hu Arguello 04/26/2017 6:36 PM
[2017-04-26] MEDS: SOLU-MEDROL IV SCH (20:26)
[2017-04-26] MEDS: FLOMAX PO SCH (20:26)
[2017-04-26] MEDS ORDERED: DUONEB (A & A) INH PRN (20:53)
[2017-04-27] MEDS: SOLU-MEDROL IV SCH ×3 (03:32→20:59)
[2017-04-27] MEDS: AZACTAM 1 GM in NS 50 ML IV SCH ×3 (03:32→20:56)
[2017-04-27 05:10] LABS: BASO% 0.1 % (0.0-0.8); EOS# 0.02 X1000 (0.0-0.7); EOS% 0.3 % (0.0-10.0); HEMATOCRIT 30.9 % (42.0-52.0); HEMOGLOBIN 9.7 g/dL (14.0-18.0); IMM GRAN% 1.4 % (0.0-0.5); LYMPH# 0.52 X1000 (1.2-3.4); LYMPH% 7.2 % (20.5-51.1); MANUAL DIFF NEEDED? YES; MCH 24.4 PG (27-31); MCHC 31.4 g/dL (33-37); MCV 77.6 FL (81-99); MONO# 0.22 X1000 (0.11-0.59); MONO% 3.1 % (1.7-9.3); MPV 9.5 FL (7.4-10.4); NEUT% 87.9 % (42.2-75.2); PLT 241 X1000 (130-400); RBC 3.98 XMIL (4.7-6.1)
[2017-04-27 05:34] LABS: BANDS 8 % (0-1); HYPOCHROM OCCASIONAL; LYMPHS 8 % (21-51); MONO 4 % (1-9)
[2017-04-27 05:44] LABS: AGAP 12; ALBUMIN 3.1 g/dL (3.5-5.0); ALKALINE PHOSPHATASE 64 U/L (32-122); BUN 26 mg/dL (8-22); CALCIUM 8.7 mg/dL (8.8-10.2); CHLORIDE 100 mmol/L (98-107); COSMO 295; GOT 24 U/L (10-34); GPT 29 U/L (10-44); MAGNESIUM 1.6 mg/dL (1.5-2.7); SODIUM 142 mmol/L (136-145); TCO2 30 mmol/L (25-35); TOTAL BILIRUBIN 0.33 mg/dL (0.20-1.00)
[2017-04-27] MEDS: ZOLOFT PO SCH (08:51)
[2017-04-27] MEDS: CARDIZEM PO SCH ×3 (08:51→20:58)
[2017-04-27] MEDS: CORDARONE PO SCH (08:51)
[2017-04-27] MEDS: FLONASE NAS SCH (08:51)
[2017-04-27] MEDS: PRAVACHOL PO SCH (08:51)
[2017-04-27] MEDS: ASPIRIN EC PO SCH (08:51)
[2017-04-27] MEDS: NEURONTIN PO SCH ×3 (08:51→20:59)
[2017-04-27] MEDS: PROTONIX PO SCH (08:51)
[2017-04-27] MEDS: ZYVOX PO SCH ×2 (08:51→20:59)
[2017-04-27] MEDS ORDERED: NEURONTIN PO SCH (09:00)
[2017-04-27] MEDS ORDERED: CARDIZEM PO SCH (09:00)
[2017-04-27] MEDS ORDERED: DUONEB (A & A) INH PRN (09:41)
--- NOTE | 2017-04-27 10:33 | PROGRESS NOTE ---
DATE: 04/27/2017 SUBJECTIVE: Today, Mr. Iqbal refers to be doing a whole lot better. Breathing has significantly improved and he is actually now on only 2 L of oxygen which was what he used to be doing at home. OBJECTIVE: Vital signs: Blood pressure is 133/75, pulse of 80, respirations 16 , temperature is 98, patient is saturating 93 to 98%. General: Objectively, Mr. Iqbal is a 76 -year-old, male. He is in bed, not seemingly distressed. HEENT: Mucosa is pink and moist. Anicteric. Acyanotic. Neck: Supple. Chest: Air entry is bilaterally reduced , more so to the left posterior lung field. Did not appreciate any rhonchi. No crepitations. Cardiovascular: Regular rate and rhythm. No murmurs, no rubs. No gallops. Abdomen: Soft, nontender. Extremities: No pedal edema. SLIP TENDER: Patient is alert and oriented x4. There is no focal neurological deficit. LABORATORY DATA: WBC is 7.18, hemoglobin is 9.7, platelet count of 241. There is 8% of bands on peripheral smear. Chemistry is reviewed. Completely normal. TSH is normal as well. Review of CT scan report which was done yesterday shows severe emphysematous changes throughout both lungs. Patchy bronchopneumonia. There is some improvement of the left upper lobe. ASSESSMENT: 1. Acute on chronic hypoxemic respiratory failure. 2. Multifocal pneumonia (bronchopneumonia on CT scan). 3. Persistent left upper lobe pneumonia after multiple rounds of IV antibiotics. The image is somehow getting better, but still has some consolidation in the left upper lobe. I think eventually patient would benefit from looking in the bronchioles to make sure there is not endobronchial lesion. 4. Congestive heart failure with ejection fraction of 25%. The patient has a pro B which is slightly elevated. We are going to continue with his current medications. There is an echo, which is supposed to be repeated, to be done this morning for us to follow up on his cardiac output. 5. History of ischemic cardiomyopathy with multiple stents in the past. 6. Diabetes mellitus controlled. 7. Severe chronic obstructive pulmonary disease and emphysema on home 2 oxygen. PLAN: So in general, I think Mr. Iqbal is doing a whole lot better today. As I said, his oxygen demand is now down to 2. He is currently on aztreonam and linezolid. Will also continue with his heart medications and steroid. Patient will be evaluated by both Pulmonary Medicine and Infectious Disease during this hospital stay. Physical therapy is also consulted. They just came and walked with the patient. He seems to be doing pretty well. I think Mr. Iqbal will be in hospital a few more days because of his on and off lung infection. We would want to make sure that he has adequate IV therapy before he gets discharged. Will be pending further recommendations from both ID and Pulmonary Medicine. cc: Keith Herrera MD MTDD
[2017-04-27] MEDS: DUONEB (A & A) INH SCH ×4 (10:57→23:20)
--- NOTE | 2017-04-27 16:49 | CONSULTATION ---
DATE OF CONSULTATION: 04/27/2017 CONCLUSION: The patient is readmitted to the hospital with bilateral pneumonia. In January I had seen the patient, he had a 3-4 week course of IV antibiotics. He tells me that approximately a week ago he started having increasing dyspnea and progressive weakness. He has not been coughing. He has not had fever or chills. His laboratory studies thus far show a CBC with a white count of 7180, hemoglobin 9.7, and platelet count 241,000. Creatinine was 1.1. GFR was greater than 60. Sputum Gram stain shows white cells, occasional gram negative rods, and 1+ 1+ gram positive cocci. Blood cultures are pending. The patient's CT scan of the chest shows bilateral opacities. The patient has been started on aztreonam and Zyvox. 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 RECOMMENDATIONS: I agree with starting the patient on Zyvox and aztreonam pending culture results. I plan to also check the patient's immunoglobulin levels. PAST MEDICAL HISTORY/REVIEW OF SYSTEMS: Eyes and Ears: The patient has decreased hearing and vision. Neck: No stiffness. Respiratory: See present illness. Cardiac: No chest pain or palpitations. GI: No nausea, vomiting, or diarrhea. : No dysuria or flank pain. Endocrine: The patient is a diabetic but he does not have thyroid disease. Hematologic: No bleeding tendency. The patient has been anemic recently because of his illnesses. Neurologic: No seizures, no motor or sensory loss. Integument: No rash noted. PREVIOUS HOSPITALIZATIONS AND OPERATIONS: He has been admitted for pneumonia, 3 laminectomies, 3 hernia repairs, cholecystectomy, appendectomy, carpal tunnel surgery, cervical spine surgery, placement of coronary artery stents, and admission for myocardial infarction. MEDICAL DISEASES: Positive for degenerative joint disease, diabetes mellitus, hypertension, myocardial infarction, coronary artery disease, COPD, hyperlipidemia, and gastroesophageal reflux disease. INFECTIOUS DISEASE HISTORY: Positive for pneumonia and back wound infection following surgery. FAMILY HISTORY: Positive for myocardial infarction, and cancer. SOCIAL HISTORY: [place] ALLERGIES: He has an allergy to penicillin, sulfa, and tetracycline. During the last admission and as an outpatient he tolerated having cefepime and Invanz well, without any allergic reaction. Also, he previously has tolerated Rocephin well. HOME MEDICATIONS: Include the following: Flomax, Zoloft, prednisone, pravastatin, Protonix, nitroglycerin, Glucophage, lisinopril, glipizide, Neurontin, Lasix, Flonase, Cardizem,aspirin, amiodarone, albuterol inhaler. PHYSICAL EXAMINATION: Vital Signs: Temperature is 97.6 degrees pulse is 81, respirations 16, blood pressure 122/68. Patient's weight is listed as 217 pounds. Generally: This is a somewhat ill-appearing, elderly male. He is in no acute distress. Head, eyes, ears, nose, and throat: He can hear my spoken words and see near objects. He does not have any white patches in his mouth. He is wearing dentures. Neck: No meningismus. Thorax: Increased AP diameter of the chest. Lungs: Clear to auscultation. Cardiovascular: Heart rate is regular. Abdomen : Soft and nontender. Neurologic: Patient is awake. He can move his extremities. There is no tremor. His sensation is intact to touch. His memory, as regarding his medical history, seems intact. Integument: No rash noted. Thank you for the consult. cc: Baldemar Todd MD MTDD
--- NOTE | 2017-04-27 19:05 | CONSULTATION ---
DATE OF CONSULTATION: 04/27/2017 REQUESTING PHYSICIAN: Dr. Herrera. REASON FOR CONSULTATION: Pneumonia. HISTORY OF PRESENT ILLNESS: Mr. Iqbal is a 76-year-old white male with severe COPD, ischemic cardiomyopathy, with an ejection fraction of 25%, chronic hypoxemic respiratory failure, with no evidence of active lung disease on a chest x-ray in December of this year. The patient developed a persistent cough, and was admitted to the hospital January 30. CT scan of the thorax at that time revealed new and diffuse left upper lobe pneumonia, bilateral effusions, mild left lower lobe pneumonia. The patient had a prolonged hospital course, and was discharged after 2 weeks of antibiotics. The patient underwent a followup CT scan 02/28/2017, which revealed decreasing infiltrates, but continued consolidation in the left upper lobe. The patient was initiated on steroids, with decreasing left upper lobe opacity. The patient's prednisone was decreased. He developed increased cough, increased purulent sputum production, and diffuse sweats. The patient presented to the emergency room. Chest x-ray revealed a new infiltrate in the left base. CT scan of the thorax was performed, which revealed significant improvement, with decreased consolidation in the left upper lobe, but he has a new infiltrate in the left lower lobe and the right middle lobe. The patient reports he is producing [id number] sputum, 2-3 tablespoons per day. PAST MEDICAL HISTORY: 1. End-stage COPD, with chronic hypoxemic respiratory failure. 2. Ischemic cardiomyopathy, with ejection fraction of 25%. 3. History of multiple stent placements. 4. History of stroke. 5. Dyslipidemia. 6. Diabetes mellitus. SOCIAL HISTORY: Extensive tobacco use, but none recently. No alcohol use. FAMILY HISTORY: Noncontributory to current presentation. REVIEW OF SYSTEMS: As noted in the HPI. He does also report occasional loose stool, but no frequent diarrhea. He denies urinary tract symptoms. PHYSICAL EXAMINATION: General: Reveals a chronically ill-appearing, white male, in no distress. He has been afebrile during this hospitalization. Vital Signs: Blood pressure 124/63, heart rate 81, respiration rate 16, oxygen saturation 98%. HEENT: Pupils are equal and reactive. Oropharynx is clear. Neck: Supple. Chest: Reveals occasional rhonchi bilaterally. Cardiac: Regular rate. Normal S1, normal S2. Abdomen: Soft and without hepatosplenomegaly. Extremities: Reveal 1+ edema. LABORATORY STUDIES: CT scan as per HPI. Blood cultures to date are negative. Sputum culture is pending. White blood count 7.18, hemoglobin 9.7, platelet count 241,000. He does have a left shift. IMPRESSION: A 76-year-old with end-stage lung disease, end-stage heart disease, with recurrent pneumonia. 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 However, he now has new infiltrates in the right and left lung. He also has cough productive of purulent sputum. Interestingly, he never migdalia a significant white blood count, and he may have a bone marrow issue. RECOMMENDATIONS: 1. Continue bronchial hygiene. 2. Agree with current steroid dose. 3. Agree with current antibiotic regimen. 4. Check immunoglobulin levels as ordered per Dr. Todd. 5. Overall prognosis is guarded, given his end-stage heart and lung disease. cc: Hadley Nichole MD
--- NOTE | 2017-04-27 19:16 | ECHO REPORT ---
ORDER DATE: 04/26/2017 INTERPRETING PHYSICIAN: Dr. Berger REQUESTING PHYSICIAN: CLINICAL INDICATIONS: A 76-year-old male with shortness of breath, CHF. M-MODE MEASUREMENTS: Right ventricle: 3.3 cm. Left ventricle end diastole: 6.4 cm. Left ventricle end systole: 5.4 cm. Posterior wall: 0.7 cm. Interventricular septum: 1.2 cm. Left atrium: 4.4 cm. Aortic root: 2.9 cm. SUMMARY OF 2-DIMENSIONAL IMAGING: This study is technically difficult. The left ventricular chamber is significantly dilated. The global ejection fraction is significantly impaired, estimated visually at 35%. There is extensive anteroapical akinesis to dyskinesis consistent with an old anteroapical myocardial infarction. The contractility of the basal segments of the left ventricle lateral wall appear to be preserved. The right ventricle is mildly enlarged. There is no pericardial effusion. The aortic valve shows a mild degree of sclerosis of the cusps without stenosis. The mitral valve opens normally. Color flow mapping unremarkable. Pulse wave Doppler of mitral inflow shows reversal of the E and the A wave. Tissue Doppler of septal and lateral mitral annulus averages 7.5 cm per second. There is no significant diastolic dysfunction. Pulmonary venous flow appears to be normal. The tricuspid valve shows a mild degree of regurgitation. The inferior vena cava is not dilated. Pulmonary pressure estimated at 26 mmHg. The pulmonic valve appears to be normal. Color flow mapping unremarkable. There is no pericardial effusion, masses or thrombus. IMPRESSION: In summary, this study shows: 1. Markedly dilated left ventricle with significantly impaired systolic function. Ejection fraction 35% with extensive anteroapical akinesis to dyskinesis. 2. Mild degree of mitral and tricuspid regurgitation. 3. Normal diastolic function. 4. Pulmonary pressure estimated at 26 mmHg. This study is consistent with an old extensive anteroapical myocardial infarction. cc: MD Keith Mackay MD
[2017-04-27] MEDS: AMBIEN PO SCH (20:58)
[2017-04-27] MEDS: FLOMAX PO SCH (20:58)
[2017-04-27] MEDS ORDERED: AMBIEN PO SCH (21:00)
[2017-04-28] MEDS: SOLU-MEDROL IV SCH ×3 (03:50→21:12)
[2017-04-28] MEDS: DUONEB (A & A) INH SCH ×3 (03:50→11:11)
[2017-04-28] MEDS: AZACTAM 1 GM in NS 50 ML IV SCH ×3 (03:51→21:03)
[2017-04-28 06:09] LABS: HEMATOCRIT 29.9 % (42.0-52.0); HEMOGLOBIN 9.3 g/dL (14.0-18.0); IMM GRAN# 0.08 X1000 (0.0-0.04); IMM GRAN% 0.9 % (0.0-0.5); LYMPH# 0.46 X1000 (1.2-3.4); LYMPH% 5.3 % (20.5-51.1); MANUAL DIFF NEEDED? YES; MCH 24.2 PG (27-31); MCHC 31.1 g/dL (33-37); MCV 77.7 FL (81-99); MONO# 0.27 X1000 (0.11-0.59); MONO% 3.1 % (1.7-9.3); MPV 9.5 FL (7.4-10.4); NEUT% 90.7 % (42.2-75.2); PLT 280 X1000 (130-400); RBC 3.85 XMIL (4.7-6.1)
[2017-04-28 06:16] LABS: CALCIUM 8.5 mg/dL (8.8-10.2); POTASSIUM 3.8 mmol/L (3.5-5.1)
[2017-04-28 06:40] LABS: BANDS 8 % (0-1); HYPOCHROM 2+; LYMPHS 6 % (21-51); MONO 4 % (1-9)
--- NOTE | 2017-04-28 07:38 | PROGRESS NOTE ---
DATE: 04/28/2017 PRESENT ILLNESS: The patient is being treated for bilateral pneumonia. He in January had pneumonia also. MEDICATIONS: The patient is on a combination of p.o. Zyvox and IV aztreonam. PHYSICAL EXAMINATION: Vital Signs: Temperature is 97.9 degrees, pulse 85, respirations 14, blood pressure 126/66. General: This is an ill-appearing elderly male. He is in no acute distress at this time. Lungs: Clear to auscultation. Cardiovascular: Regular heart rate. Abdomen: Soft and nontender. ENT: No drainage was noted from the nose or ears. LAB AND X-RAY: The patient's CBC showed a white count of 8,700, hemoglobin 9.3 , and platelet count 280,000. Creatinine is 1.2. GFR is 59. Immunoglobulin G and A levels are pending. Sputum Gram stain showed occasional gram negative rods and 1+ gram-positive cocci. Blood cultures thus far are negative. IgG and IgA levels are normal. ASSESSMENT AND PLAN: Patient has recurrent pneumonia. My plan is to continue his current antibiotics, namely Zyvox and aztreonam, pending culture results. Also the patient has immunoglobulin levels drawn to see if he has an immunoglobulin deficiency. Comorbidities in this patient include he is elderly. He also has COPD, gastroesophageal reflux disease, and diabetes mellitus. cc: Baldemar Todd MD MTDD
[2017-04-28] MEDS: ASPIRIN EC PO SCH (08:48)
[2017-04-28] MEDS: ZOLOFT PO SCH (08:48)
[2017-04-28] MEDS: ZYVOX PO SCH ×2 (08:49→21:03)
[2017-04-28] MEDS: NEURONTIN PO SCH ×3 (08:49→21:04)
[2017-04-28] MEDS: PROTONIX PO SCH (08:49)
[2017-04-28] MEDS: PRAVACHOL PO SCH (08:49)
[2017-04-28] MEDS: CARDIZEM PO SCH (08:50)
[2017-04-28] MEDS: CORDARONE PO SCH (08:50)
[2017-04-28] MEDS: FLONASE NAS SCH (11:12)
[2017-04-28] MEDS: PRINIVIL PO SCH (11:20)
[2017-04-28] MEDS: LASIX PO SCH (11:20)
[2017-04-28] MEDS ORDERED: NS NEB INH SCH (14:45)
--- NOTE | 2017-04-28 15:22 | PROGRESS NOTE ---
DATE: 04/28/2017 SUBJECTIVE: Today Mr. Iqbal refers to be doing a little better. Has been shaking a little bit after he was given nebulization with the albuterol. OBJECTIVE: Vital signs: Blood pressure is 113/57, pulse of 79, respiration is 15, temperature is 97.7 degrees. The patient was saturating between 87% to 93% on oxygen. General Appearance: Mr. Iqbal is a 76-year-old male. He was sitting up in the chair, in no distress. HEENT: Mucosa is pink and moist. Anicteric. Acyanotic. Neck: Supple. Chest: Air entry is bilaterally reduced. There are a few bibasilar crepitations. Cardiovascular: Regular rate and rhythm. No murmurs, no rubs. No gallops. Abdomen: Soft. Extremities: No pedal edema. CONTROLLER COAL OR ORE: Patient is alert and oriented x4. There is not any focal neurological deficit. DIAGNOSTIC DATA: Laboratory Data: WBC is 8.70, hemoglobin is 9.3, platelet count of 280,000. Sodium 138, potassium is 3.8, chloride is 97, bicarb is 27, creatinine is 1.7. Immunoglobulins have all been normal. An echocardiogram which was done on the showed mildly dilated left ventricle with significant impaired systolic function. Ejection fraction is 35%. ASSESSMENT: 1. Acute on chronic hypoxemic respiratory failure. 2. Multifocal pneumonia. 3. Persistent left upper lobe pneumonia after multiple rounds of IV antibiotics. 4. Congestive heart failure with ejection fraction of 35%. 5. History of ischemic cardiomyopathy with multiple stents in the past. 6. Diabetes mellitus. 7. Severe chronic obstructive pulmonary disease and emphysema on home 2 oxygen. So in general, Mr. Iqbal seems to be doing progressively well. He is also being followed up by Pulmonary Medicine and Infectious Disease. Sputum culture has not grown anything yet, preliminary result shows some gram negative rods and gram positive cocci. We are going to continue with the current antibiotics. I think Mr. Iqbal is going to be here in the hospital throughout the weekend. I have changed his albuterol to Xopenex q.4 p.r.n. as needed since I do not hear much wheezing. I have also have also added low-dose beta herminia because of his ejection fraction and the fact that he is now euvolemic. I have discontinued the 3 times diltiazem and put him on long-acting diltiazem 180 once per day. We will continue with the other medications, treat as necessary over the weekend. I have also restarted his Lasix at a lower dose, and lisinopril. cc: Keith Herrera MD
[2017-04-28] MEDS: CARDIZEM CD PO SCH (16:58)
[2017-04-28] MEDS: FLOMAX PO SCH (21:04)
[2017-04-28] MEDS: AMBIEN PO SCH (22:07)
[2017-04-29] MEDS: AZACTAM 1 GM in NS 50 ML IV SCH ×3 (04:17→20:08)
[2017-04-29] MEDS: SOLU-MEDROL IV SCH ×3 (04:17→20:07)
[2017-04-29] MEDS: PRINIVIL PO SCH (08:56)
[2017-04-29] MEDS: ZOLOFT PO SCH (08:56)
[2017-04-29] MEDS: TOPROL XL PO SCH (08:57)
[2017-04-29] MEDS: PROTONIX PO SCH (08:57)
[2017-04-29] MEDS: ASPIRIN EC PO SCH (08:57)
[2017-04-29] MEDS: CARDIZEM CD PO SCH (08:57)
[2017-04-29] MEDS: PRAVACHOL PO SCH (08:57)
[2017-04-29] MEDS: LASIX PO SCH (08:57)
[2017-04-29] MEDS: ZYVOX PO SCH ×2 (08:57→20:09)
[2017-04-29] MEDS: NEURONTIN PO SCH ×3 (08:57→20:09)
[2017-04-29] MEDS: CORDARONE PO SCH (08:57)
[2017-04-29] MEDS: FLONASE NAS SCH (08:58)
[2017-04-29] MEDS ORDERED: CARDIZEM CD PO SCH (09:00)
--- NOTE | 2017-04-29 13:51 | PROGRESS NOTE ---
DATE: 04/29/2017 SUBJECTIVE: Today, Mr. Iqbal refers to be doing a whole lot better. Breathing has improved, and no cough. He also said he had a very good sleep last night. OBJECTIVE: Vital signs: Blood pressure is 119/71, pulse of 61, respirations 19, temperature is 98 degrees, and the patient is saturating 99% on 3L nasal cannula. General: Mr. Iqbal is a 76- year-old, very pleasant, gentleman. He was in bed. Not seemingly distressed. HEENT: Mucosa pink and moist. Anicteric. Acyanotic. Neck: Supple. Chest: Good air entry bilaterally. Few bibasilar crepitations. Cardiovascular: Regular rate and rhythm. Abdomen: Soft, nontender. Extremities: No pedal edema. Central Nervous System: Patient is alert and oriented x4. There is no focal neurological deficit. LABORATORY DATA: None for today. ASSESSMENT: 1. Acute on chronic hypoxemic respiratory failure. 2. Multifocal pneumonia. 3. Persistent left upper lobe pneumonia after multiple rounds of IV antibiotics. A recent CT scan, however, shows some improvement. 4. Congestive heart failure with ejection fraction of 35%. 5. 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 6. Diabetes mellitus, stable. 7. 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 So, in general, I think Mr. Iqbal is doing fine. We are going to continue with the current antibiotics, which are aztreonam and Zyvox. We will also continue with the current steroid regimen and the heart medications. I anticipate that we might probably be able to discharge the patient home on Monday, pending Infectious Disease final recommendations on antibiotics. cc: Keith Herrera MD
[2017-04-29] MEDS: FLOMAX PO SCH (20:09)
[2017-04-29] MEDS: MYLICON PO PRN (22:21)
[2017-04-29] MEDS: HUMALOG SUBQ SCH (22:22)
[2017-04-29] MEDS: AMBIEN PO SCH (22:22)
[2017-04-30] MEDS: SOLU-MEDROL IV SCH ×3 (03:27→20:26)
[2017-04-30] MEDS: AZACTAM 1 GM in NS 50 ML IV SCH ×3 (03:28→20:50)
[2017-04-30] MEDS: HUMALOG SUBQ SCH ×5 (06:07→20:26)
[2017-04-30] MEDS ORDERED: SODIUM CHLORIDE 0.9% 0 ML ONE (08:30)
--- NOTE | 2017-04-30 08:31 | PROGRESS NOTE ---
DATE: 04/30/2017 SUBJECTIVE: Mr. Iqbal is a 76-year-old who was admitted on April 26. This is a 76-year-old and he came in with shortness of breath and productive cough. He just recently was discharged from the hospital on 02/16/2017, spending almost 2 weeks in the hospital for left upper lobe pneumonia. According to him, even after he got discharged, still got a few days of IV outpatient antibiotics. Also had about 2 weeks of p.o. Levaquin per Dr. Todd and eventually stopped. He is followed by Dr. Nichole. According to him, he had multiple x-rays done. He was doing fine until about 4 weeks ago. He started having some shortness of breath on exertion, progressively worse according to him. He normally uses 2 pillows to sleep. This has been going on since his admission in January. He had some increased sputum production so he was admitted with multifocal pneumonia, acute on chronic hypoxemia, respiratory failure, recurrent left upper lobe pneumonia, suspect postop obstructive pneumonia, and history of congestive heart failure with an ejection fraction of about 25% in the past. ProBNP is elevated so I have been treating him for pulmonary edema as well. History of ischemic cardiomyopathy. PAST MEDICAL HISTORY: He has severe COPD, chronic hypoxemic respiratory failure, myocardial infarction - status post stenting of RCA in 2001, to the LAD in 2004, circumflex in 2010. Ischemic cardiomyopathy with ejection fraction of 25%, persistent atrial fibrillation. PHYSICAL EXAMINATION: General: Today, he feels better. He states he feels better. He is breathing better. Still coughing up some stuff, especially in the morning. Vital Signs: Remains afebrile, temperature 97.6 degrees, pulse 70, respirations 20, blood pressure 117/66. Lungs: Clear. CVP less than 6 cm in size. Lungs are clear anterolateral. Cardiovascular Examination: Regular rhythm and rate without murmur or S3. Abdomen: Soft. Skin: Warm and dry. Is and Os: Urine output over 2 L. LABORATORY DATA: From yesterday reviewed. White count 8700, hematocrit 29, platelet count 280,000. Chemistries from yesterday also reviewed. Creatinine stable at 1.2. Blood sugars have been 321 and 306. ASSESSMENT AND PLAN: 1. Acute on chronic hypoxemic respiratory failure, improving. 2. Multifocal pneumonia. Continue present antibiotics and breathing treatments. 3. Persistent left upper lobe pneumonia after multiple rounds of antibiotics. A recent CT scan showed some improvement. 4. Congestive heart failure with ejection fraction of 35%. Ischemic cardiomyopathy. 5. History of ischemic dilated cardiomyopathy with multiple stents in the past and coronary artery disease. 6. Diabetes mellitus type 2. Sugars are running a little high. 7. 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 He is improving. Continue present treatment. Check a chest x-ray again in the morning. 8. Atrial fibrillation which rate is controlled. Doing well. 9. Review of orders. He is on Ambien 5 mg at bedtime, Flomax 0.4 mg at bedtime, Zoloft 100 mg daily, Pravachol 40 mg daily, Protonix 40 mg a day, metoprolol succinate 25 mg a day, methylprednisone 20 mg intravenous every 8 hours, Prinivil 10 mg a day. Antibiotics, he is on linezolid 600 mg twice a day. Neurontin 100 mg three times a day, Lasix 20 mg by mouth every morning, fluticasone 50 mcg 1 spray daily, diltiazem CD 180 mg a day, aztreonam 1 g intravenous every 8, aspirin 81 mg a day, amiodarone 200 mg a day. We will check electrolytes and a chest x-ray, CBC in the morning. cc: Claudy Turenr MD
[2017-04-30] MEDS: ZOLOFT PO SCH (08:59)
[2017-04-30] MEDS: CARDIZEM CD PO SCH (09:00)
[2017-04-30] MEDS: PROTONIX PO SCH (09:01)
[2017-04-30] MEDS: CORDARONE PO SCH (09:01)
[2017-04-30] MEDS: PRINIVIL PO SCH (09:01)
[2017-04-30] MEDS: LASIX PO SCH (09:02)
[2017-04-30] MEDS: ASPIRIN EC PO SCH (09:02)
[2017-04-30] MEDS: ZYVOX PO SCH ×2 (09:03→20:28)
[2017-04-30] MEDS: TOPROL XL PO SCH (09:04)
[2017-04-30] MEDS: PRAVACHOL PO SCH (09:04)
[2017-04-30] MEDS: NEURONTIN PO SCH ×3 (09:04→20:27)
[2017-04-30] MEDS: FLONASE NAS SCH (09:04)
--- NOTE | 2017-04-30 12:23 | Diag Imaging Result Doc PS360 ---
EXAM: CHEST-2 VIEWS INDICATION: abnormal exam TECHNIQUE: 3 views COMPARISON: 04/26/2017 FINDINGS: Left upper lobe infiltrate seen previously is approximately stable. The right lower lung zone infiltrate is stable to marginally worsened. No new consolidations are appreciated. Cardiac silhouette is stable. IMPRESSION: Bilateral consolidation similar to the previous study with perhaps marginal worsening at the right lower lung zone. Electronically signed by Luis Gates 04/30/2017 12:20 PM
[2017-04-30] MEDS: XOPENEX NEB INH PRN ×3 (14:15→23:20)
[2017-04-30] MEDS ORDERED: LASIX IV ONE (14:23)
[2017-04-30] MEDS: HUMULIN 70/30 SUBQ SCH (17:45)
[2017-04-30] MEDS: FLOMAX PO SCH (20:28)
[2017-04-30] MEDS: AMBIEN PO SCH (21:28)
[2017-05-01] MEDS: AZACTAM 1 GM in NS 50 ML IV SCH ×4 (02:53→20:43)
[2017-05-01] MEDS: SOLU-MEDROL IV SCH ×4 (02:53→20:51)
[2017-05-01] MEDS: HUMALOG SUBQ SCH ×4 (07:29→20:44)
[2017-05-01] MEDS: HUMULIN 70/30 SUBQ SCH ×2 (07:32→16:59)
[2017-05-01] MEDS: XOPENEX NEB INH PRN ×4 (07:52→19:34)
--- NOTE | 2017-05-01 08:02 | PROGRESS NOTE ---
DATE: 05/01/2017 SUBJECTIVE: Mr. Iqbal is breathing better. He feels a lot better. Yesterday, blood sugars ran a little high. He was concerned about that. PHYSICAL EXAMINATION: Vital Signs: Temperature 97.8 degrees, pulse 70, respirations 19, blood pressure 127/74. HEENT: Pupils are equal and round. Lungs: Clear in all lung mccarthy. Cardiovascular Examination: Regular rhythm and rate without murmur or S3. Abdomen: Soft. Skin: Is warm and dry. Is and Os: Urine output over 7 L. LABORATORY DATA: No new labs today. Blood sugars 271, 254, 276. ASSESSMENT AND PLAN: 1. Acute on chronic respiratory failure with marked improvement. 2. Multifocal pneumonia which is improving. Continue antibiotics. 3. Persistent left upper lobe pneumonia with multiple rounds of antibiotics. Recent CT scan did show improvement. 4. Congestive heart failure with ejection fraction of 35% and ischemic cardiomyopathy, better compensation. 5. Ischemic dilated cardiomyopathy, multiple stents in the past, coronary artery disease. 6. Diabetes mellitus type 2. Sugars have been running high. We will adjust insulin. 7. Severe chronic obstructive pulmonary disease, emphysema, chronic obstructive pulmonary disease exacerbation on home O2. This has improved overall. Exacerbation from pneumonia. 8. Atrial fibrillation, rate controlled. 9. General strength and nutrition appear good. Chest x-ray from yesterday, bilateral consolidations. From a previous study, perhaps marginal worsening on the right lower lung zone. 10. We will adjust his 70/30. We started him on 10 units. I just started that yesterday so we will see how that 10 units does, twice a day. I am going to put him back on some Lasix as well. I think I will give him 40 mg intravenous every 12. cc: Claudy Turner MD
[2017-05-01 08:04] LABS: BASO% 0.1 % (0.0-0.8); EOS# 0.02 X1000 (0.0-0.7); EOS% 0.2 % (0.0-10.0); HEMATOCRIT 32.2 % (42.0-52.0); IMM GRAN% 1.1 % (0.0-0.5); LYMPH# 0.41 X1000 (1.2-3.4); LYMPH% 4.3 % (20.5-51.1); MANUAL DIFF NEEDED? YES; MCH 24.2 PG (27-31); MCHC 31.1 g/dL (33-37); MCV 77.8 FL (81-99); MONO# 0.17 X1000 (0.11-0.59); MONO% 1.8 % (1.7-9.3); MPV 9.8 FL (7.4-10.4); NEUT% 92.5 % (42.2-75.2); PLT 292 X1000 (130-400); RBC 4.14 XMIL (4.7-6.1)
[2017-05-01 08:08] LABS: AGAP 15; BUN 30 mg/dL (8-22); CHLORIDE 97 mmol/L (98-107); COSMO 290; MAGNESIUM 2.2 mg/dL (1.5-2.7); POTASSIUM 4.1 mmol/L (3.5-5.1); SODIUM 138 mmol/L (136-145); TCO2 26 mmol/L (25-35)
--- NOTE | 2017-05-01 08:46 | PROGRESS NOTE ---
DATE: 05/01/2017 PRESENT ILLNESS: The patient is being treated for a bilateral pneumonia. There may be some component of pulmonary venous congestion as well. He has previously had pneumonia in January of this year. MEDICATIONS: The patient is receiving Zyvox p.o. and Zosyn IV, both for 4 days of use. LAB AND X-RAY STUDIES: The patient's IgG and IgA levels were normal. CBC showed a white count of 9430, hemoglobin 10, and platelet count 292,000. Creatinine is 1.2 with a GFR of 59. PHYSICAL EXAMINATION: Vital Signs: Temperature is 97.8 degrees, pulse is 70, respirations 16, blood pressure 127/74. General: This is a somewhat ill-appearing, elderly male. He is in no acute distress. Lungs: Clear to auscultation. Cardiovascular: Heart rate is regular. Abdomen: Soft and nontender. Neurologic: The patient is alert. He can move his extremities. ASSESSMENT AND PLAN: The patient has recurrent pneumonia. There may be an element of congestive heart failure as well. My plan would be to continue Zyvox and aztreonam pending culture results. The patient's immunoglobulin levels are normal. The patient's comorbidities include chronic obstructive pulmonary disease, gastroesophageal reflux disease, and diabetes mellitus. cc: Baldemar Todd MD
[2017-05-01 08:57] LABS: BANDS 2 % (0-1); LYMPHS 6 % (21-51)
[2017-05-01] MEDS: ASPIRIN EC PO SCH (10:07)
[2017-05-01] MEDS: LASIX IV SCH ×2 (10:07→18:51)
[2017-05-01] MEDS: PRAVACHOL PO SCH (10:08)
[2017-05-01] MEDS: FLONASE NAS SCH (10:08)
[2017-05-01] MEDS: NEURONTIN PO SCH ×3 (10:08→20:44)
[2017-05-01] MEDS: CARDIZEM CD PO SCH (10:08)
[2017-05-01] MEDS: PRINIVIL PO SCH (10:08)
[2017-05-01] MEDS: PROTONIX PO SCH (10:08)
[2017-05-01] MEDS: CORDARONE PO SCH (10:08)
[2017-05-01] MEDS: TOPROL XL PO SCH (10:09)
[2017-05-01] MEDS: ZOLOFT PO SCH (10:09)
[2017-05-01] MEDS: ZYVOX PO SCH ×2 (10:09→20:44)
[2017-05-01] MEDS: AMBIEN PO SCH (20:44)
[2017-05-01] MEDS: FLOMAX PO SCH (20:44)
[2017-05-02] MEDS: SOLU-MEDROL IV SCH ×2 (04:51→12:28)
[2017-05-02] MEDS: AZACTAM 1 GM in NS 50 ML IV SCH ×2 (04:51→12:28)
[2017-05-02] MEDS: HUMULIN 70/30 SUBQ SCH (06:14)
[2017-05-02] MEDS: HUMALOG SUBQ SCH ×2 (06:14→11:37)
--- NOTE | 2017-05-02 07:07 | PROGRESS NOTE ---
DATE: 05/02/2017 PRESENT ILLNESS: Patient has bibasilar pneumonia. There could be a component of pulmonary venous congestion as well. The patient, prior to this episode of pneumonia, also had pneumonia in January of this year. MEDICATIONS: This is day 5 of treatment with Zyvox and aztreonam. PHYSICAL EXAMINATION: Vital Signs: Temperature is 97.7 degrees, pulse 69, respirations 16, blood pressure 118/67. Generally: This is a somewhat ill-appearing, elderly male. He is in no acute distress. Lungs: There were bibasilar rales. Cardiovascular: Heart rate was regular. Abdomen: Soft and nontender. Neurologic: Patient is awake. He can move his extremities. LAB AND X-RAY: There is no new lab or x-ray for today. The patient's sputum grew normal ronit. ASSESSMENT AND PLAN: I plan to continue with the patient's current antibiotics for his pneumonia. Tomorrow, I am going to order a CBC, BMP, and a chest x-ray. COMORBIDITIES: Include COPD, gastroesophageal reflux disease, and diabetes mellitus. cc: Baldemar Todd MD MTDD
--- NOTE | 2017-05-02 07:33 | Diag Imaging Result Doc PS360 ---
EXAM: CHEST-2 VIEWS HISTORY: pneumonia TECHNIQUE: COMPARISON: 04/30/2017 FINDINGS: The lungs are hyperexpanded. There is an increased AP diameter to the chest. Heart is not enlarged. Pulmonary vessels are small. There are bilateral infiltrates. These are less dense than on the prior exam. No pleural effusions. IMPRESSION: 1.Interval improvement in the bilateral pneumonia 2.Emphysema Electronically signed by Deep Carrera 05/02/2017 7:31 AM
--- NOTE | 2017-05-02 09:07 | PROGRESS NOTE ---
DATE: 05/02/2017 ADDENDUM: We had talked about going home today but looking over his records and this is a recurrent episode of pneumonia, we will discuss with Dr. Todd. I think he needs a little longer of IV antibiotics. I would like see little more radiographic improvement so will continue present regimen and he will not go home today. cc: Claudy Turner MD
[2017-05-02] MEDS: PROTONIX PO SCH (09:39)
[2017-05-02] MEDS: ASPIRIN EC PO SCH (09:39)
[2017-05-02] MEDS: PRINIVIL PO SCH (09:39)
--- NOTE | 2017-05-02 09:39 | DISCHARGE SUMMARY ---
ADMISSION DATE: 04/26/2017 DISCHARGE DATE: 05/02/2017 This is a 76-year-old who presented with shortness of breath and productive cough. He is followed by Dr. Nichole, but also his primary care doctor is Ryanne Phipps. She has recently gotten discharged from the hospital on 02/16/2017 after spending 2 weeks in the hospital with left upper lobe pneumonia. According to him, after he got discharged still got a few days of IV antibiotics. Also got 2 weeks of p.o. Levaquin. Dr. Todd eventually discharged. left lobe is persistent but had not gotten worse. The patient followed up with Dr. Nichole and had multiple x- rays done and had one about 2 weeks before admission. He was doing fine until about 4 days before admission. He started having some shortness of breath on exertion. It progressively got worse, according to him. Normally uses about 2 pillows to sleep and has been going on since his admission in January. He also referred to some increase in production of sputum especially early in the morning. He said the sputum is dark and greenish and looks yucky and horrible. According to his , Mr. Iqbal has been having some chills and some sweats. Patient came to the emergency department because of persistent shortness of breath and increased oxygen demand from 3-4 L, and O2 saturations are in the low 90s and sometimes in the 80s. PAST MEDICAL HISTORY: 1. Severe COPD, has home O2. 2. Chronic hypoxemic respiratory failure. 3. Myocardial infarction status post stenting. 4. RCA with LAD in 2004. 5. Circumflex in 2010. 6. Ischemic cardiomyopathy and ejection fraction of 25%. 7. Persistent atrial fibrillation. HOSPITAL COURSE: Ernesto was admitted with acute on chronic respiratory failure. He had multifocal pneumonia and recurrent left upper lobe pneumonia, suspected postoperative obstructive pneumonia and some congestive heart failure with pulmonary venous hypertension. History of ischemic cardiomyopathy. He was diuresed and given antibiotics and clinically showed improvement. Chest x- rays were followed this morning. Interval improvement in bilateral pneumonia and underlying emphysema, and he was wanting to go home. [place] he could go home. MEDICATIONS: We will discharge him on the following medications: 1. Cordarone 200 mg a day. 2. Aspirin 81 mg a day. 3. Cardizem CD 180 mg daily. 4. Flonase spray 1 a day. 5. Neurontin 100 mg t.i.d. 6. Humulin 70/30 and 10 units b.i.d. 7. Prinivil 10 mg daily. 8. Toprol-XL 25 mg daily. 9. Protonix 40 mg a day. 10. Pravachol 40 mg a day. 11. Zoloft 100 mg a day. 12. Mylicon 80 mg p.r.n. 13. Flomax 0.4 mg at bedtime. 14. Ambien 5 mg at bedtime. LABORATORY: His microbiology shows no growth. ASSESSMENT AND PLAN: Of note by Dr. Todd, this is his 6th day of Xifaxan aztreonam. He has had persistent left upper pneumonia and bibasilar pneumonia. He is improving. I am going to cancel this discharge. We are going to continue him on until Dr. Todd is ready to let him go. I think radiographically we need this to clear a little more and give him a little longer, but he is definitely improved clinically. We will discuss with Dr. Todd. cc: Claudy Turner MD
[2017-05-02] MEDS: CORDARONE PO SCH (09:40)
[2017-05-02] MEDS: CARDIZEM CD PO SCH (09:40)
[2017-05-02] MEDS: ZOLOFT PO SCH (09:40)
[2017-05-02] MEDS: TOPROL XL PO SCH (09:40)
[2017-05-02] MEDS: LASIX IV SCH (09:40)
[2017-05-02] MEDS: FLONASE NAS SCH (09:41)
[2017-05-02] MEDS: NEURONTIN PO SCH (09:41)
[2017-05-02] MEDS: PRAVACHOL PO SCH (09:41)
[2017-05-02] MEDS: ZYVOX PO SCH (09:41)
[2017-05-02 11:59] VITALS: BP 115/66
[2017-05-02] MEDS: MYLICON PO PRN (14:28)
--- NOTE | 2017-05-02 15:47 | PROGRESS NOTE ---
DATE: 05/02/2017 ADDENDUM: The patient today is being discharged to an LTAC, where he will continue his current antimicrobial therapy consisting of aztreonam 1 g IV every 8 hours and Zyvox 600 mg p.o. every 12 hours for an additional 3-4 weeks to treat his pneumonia and hopefully prevent it from coming back. cc: Baldemar Todd MD
== END 2017-05-02 14:43 ==
LOC: ED 13:30 → SUATTDRO 17:33 → 3S 17:33
PROVIDERS: ATTEND Emergency Medicine